=== PATIENT | female | born 1940 | race Caucasian/White ===

== ENCOUNTER 2020-10-03 12:19 | Inpatient (IN) | payer OTHER, MEDICARE ==
[~2020-10-03] VITALS: Ht 162.6 cm; Wt 69.9 kg
[2020-10-03 12:25] VITALS: BP 104/71
[2020-10-03 12:48] LABS: ABSOLUTE NEUTROPHILS 9.9 thou/uL (1.4-8.2); BASOPHILS 0.2 % (0.0-2.0); EOSINOPHILS 0.2 % (0.0-3.0); HEMATOCRIT 40.6 % (37.0-47.0); HEMOGLOBIN 12.8 gm/dL (12.0-15.0); LYMPHOCYTES 8.9 % (24.0-44.0); MCH 31.3 pg (26.0-34.0); MCHC 31.6 g/dL (28.0-37.0); MONOCYTES 4.6 % (1.0-8.0); POLYS 86.1 % (36.0-66.0); RDW 19.5 % (10.5-14.5); WBC 11.5 thou/uL (4.0-11.0)
[2020-10-03] MEDS ORDERED: VITAMIN D210 MCG PO (12:50)
[2020-10-03] MEDS ORDERED: LEVOTHYROXINE150 MCG PO (12:51)
[2020-10-03] MEDS ORDERED: RENAL-VITE TAB0.8 MG PO (12:51)
[2020-10-03] MEDS ORDERED: ALLOPURINOL 10100 M1 PO (12:52)
[2020-10-03] MEDS ORDERED: ISOSORBIDE MONO60 M1 PO (12:52)
[2020-10-03] MEDS ORDERED: TOPROL XL25 MG PO (12:52)
[2020-10-03] MEDS ORDERED: PROTONIX40 M4 PO (12:53)
[2020-10-03] MEDS ORDERED: SERTRALINE HCL100 MG PO (12:53)
[2020-10-03] MEDS ORDERED: ELIQUIS2.5 MG PO (12:53)
[2020-10-03] MEDS ORDERED: SSD CREAM 1% 5050 GM TOP (12:54)
[2020-10-03 12:59] LABS: ANION GAP 6 mmol/L (7-16); BUN 29 mg/dL (7-18); CALCIUM 8.9 mg/dL (8.5-10.1); CHLORIDE 100 mmol/L (98-107); CO2 31 mmol/L (21-32); CREATININE 3.6 mg/dL (0.6-1.0); GLUCOSE 121 mg/dL (74-106); POTASSIUM 4.2 mmol/L (3.5-5.1); SODIUM 137 mmol/L (136-145)
[2020-10-03] MEDS ORDERED: STIMULANT LAXA1 EACH PO (13:06)
[2020-10-03] MEDS ORDERED: NITROSTAT0.4 M1 SUBLING (13:08)
[2020-10-03 13:09] LABS: ALBUMIN 2.8 g/dL (3.4-5.0); LIPASE 54 U/L (73-393); SGOT 38 U/L (15-37); SGPT 15 U/L (30-65); TOTAL BILIRUBIN 1.7 mg/dL (0.2-1.0); TOTAL PROTEIN 7.6 g/dL (6.4-8.2); TROPONIN-I <0.06 ng/mL (<0.06)
[2020-10-03 13:50] LABS: URINE BLOOD 2+ (Negative); URINE CLARITY CLOUDY; URINE COLOR YELLOW; URINE GLUCOSE-RANDOM* TRACE (Negative); URINE KETONES 1+ (Negative); URINE NITRITE-REFLEX NEGATIVE (Negative); URINE PROTEIN (DIPSTICK) 2+ (Negative)
[2020-10-03 13:56] LABS: ICTOTEST (BILI CONFIRMATORY) Negative (Negative); URINE BILIRUBIN NEGATIVE (Negative); URINE LEUKOCYTES-REFLEX 1+ (Negative)
[2020-10-03 14:28] LABS: BACTERIA-REFLEX 1-9 Few /HPF (None Seen); CASTS None Seen /LPF (None Seen); CRYSTALS None Seen /LPF (None Seen); SQUAMOUS 0-3 Few /LPF (0-3); URINE RBC 0-2 Rare /HPF (0-2); URINE WBC-REFLEX 0-5 Rare /HPF (0-5)
[2020-10-03 14:29] LABS: TRANSITIONAL EPITHEL CELL 0-3 Few /LPF (None Seen)
[2020-10-03 19:02] VITALS: BP 96/57
[2020-10-03 19:19] LABS: ANISOCYTOSIS 2+; PLATELET COUNT 173 thou/uL (150-400); PLATELET ESTIMATE NORMAL; POIKILOCYTOSIS 1+
[2020-10-03 19:50] VITALS: BP 106/64
[2020-10-03 20:00] VITALS: BP 112/47
--- NOTE | 2020-10-03 23:09 | NUR ---
PT ARRIVED VIA CART FROM ER. ADMISSION COMPLETED AND CARE PLAN STARTED. SPOKE TO PT'S SON. HE SAID HIS MOTHER IS [place] AND WONT WEAR HER HEARING AIDES WHICH SHE LEFT AT HOME. PT HOME MEDS ARE IN ROOM AWAITING COVID R/O.
[2020-10-04 00:24] VITALS: BP 94/51
--- NOTE | 2020-10-04 01:46 | NUR ---
PT COVID PCR CAME BACK NEGATIVE. ALL APPROPRIATE PARTIES NOTIFIED.
[2020-10-04 04:54] VITALS: BP 99/57
--- NOTE | 2020-10-04 07:08 | EKG ---
[facility] [place] [address] ELECTROCARDIOGRAM REPORT Name: ZAKIA HERNÁNDEZ Room #: 363-P ADM IN M.R.#: [id number] Admission: 10/03/20 Attend Phys: Yessica Osuna MD Discharge: Date of : 42 Report #: [id number] THIS REPORT FOR: cc: Rosalee Longoria MD, Stany A. 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: PAOLA : 1940 Requested By: Bryson Purdy Order Number: [id number] MD: Mau Yang Measurements Intervals [place] Rate: 112 P: 54 [place]: 166 QRS: 202 QRSD: 108 T: 147 QT: 301 QTc: 411 Interpretive Statements Sinus tachycardia with irregular rate Probable right ventricular hypertrophy Abnormal T, consider ischemia, lateral leads No previous ECG available for comparison Electronically Signed On 10-04-2020 7:08:42 MENSWEAR SALESPERSON by aMu Yang [email or web address] <ELECTRONICALLY SIGNED> By: Mau Yang MD, FACC 10/04/20 0708 1246 1246 Mau Yang MD, [facility] /EPI
[2020-10-04 08:10] VITALS: BP 91/51
--- NOTE | 2020-10-04 10:05 | NUR ---
ASSESSMENT: CM REVIEWED CHART AND ATTEMPTED TO CALL PT BUT NO ANSWER. CM REACHED OUT TO PATIENTS SON DOM. PT WAS ADMITTED DUE TO MENTAL STATUS CHANGE AND CONCERN FOR POSSIBLE SEPSIS. PT JARRETT RECENTLY MOVED FROM [facility] AND IS LIVING WITH HER SON AND HIS IN A HOUSE. SON REPORTS TWO STEPS TO ENTER THE HOME BUT THEY HAVE A RAMP SHE CAN USE. PT HAS NO STEPS SHE HAS TO USE ONCE INSIDE. PT HAS A TRIPOD WALKER FOR AMBULATION. PT IS NORMALLY INDEPENDENT WITH ADLS. PT HAS A GRAB BAR IN THE SHOWER ALONG WITH A SHOWER BENCH. PT IS CURRENTLY ON 2L OXYGEN BUT DOES NOT HAVE OXYGEN AT HOME. PTS PCP IS DR. Saumya DORAN ([facility]). PT GETS DIALYSIS M-W- 0630 CHAIR TIME AT [facility] LOCATION. SON DRIVES HER TO AND FROM. CM CONTACTED [facility] TO NOTIFY THEM OF ADMISSION AND THEY REQUEST DISCHARGE PAPERWORK/FLOWSHEETS TO FAX:[phone]. PT HAS NO HX OF HH IN THE PAST NOR SNF. CM WILL CONTINUE TO FOLLOW TO ASSIST NEEDED.
[2020-10-04 11:13] VITALS: BP 98/65
--- NOTE | 2020-10-04 13:51 | NUR ---
PT ALERT AND ORIENTED TIMES THREE, WITH PERIODS OF CONFUSION. BP SOFT, OTHER VSS. CHOWDARY TO DD. PT DENIES PAIN. PT EATS SMALL PORIONS OF MEALS. PT TAKEN OUT OF ISOLATION COVID TEST NEG. PT CURRRENTLY GETTING DIALYSIS. SPOKE WITH PT SON AT 0750AM AND ALSO 1200PM TO UPDATE ON PT CARE. WILL CONTINUE TO MONITOR.
[2020-10-04 17:50] VITALS: BP 112/54
[2020-10-04 19:29] VITALS: BP 107/40
--- NOTE | 2020-10-04 20:01 | NUR ---
PT A&OX4, VSS, DENIES PAIN. PATIENT TRANSFER FROM APPROX. 1700. PATIENT DENIES N/V/D. NO COUGH NOTED AT THIS TIME. PATIENT HAD DIALYSIS TODAY, 1400ML OFF PER REPORT. DIALYSIS PORT BANDAGED LEFT UPPER ARM. PATIENT ON 2L O2. NO SIGNS OF DISTRESS NOTED. WILL CONTINUE TO MONITOR.
[2020-10-05 04:45] VITALS: BP 98/46
--- NOTE | 2020-10-05 07:50 | NUR ---
ASSUMED PATIENT CARE AT 1845. VITAL SIGNS STABLE WITH PATIENT HAVING NO COMPLAINTS OF PAIN OR NAUSEA. PATIENTS ORIENTATION HAS IMPROVED OVER SHIFT WITH PATIENT APPEARING MORE LUCID AND INVOLVED IN CARE. BREATHING STABLE ON LOW LEVEL OF OXYGEN EVIDENCED BY ASSESSMENTS AND SPOT OXYGENATION CHECKS. CONTINUE PLAN OF CARE.
[2020-10-05 08:07] LABS: HEP B SURFACE Ab(ANTI-HBS Reactive (()); HEPATITIS B SURFACE AG Negative (Negative)
[2020-10-05 16:00] VITALS: BP 97/35
--- NOTE | 2020-10-05 16:49 | NUR ---
Case discussed with the care team. Pt getting dialysis today and very weak. PT/OT evals are in progress. Pt lives at home with family and has dme in place other than O2. Her son takes her to dialysis. Will follow along for possible HH or SNF referral pending her progress. Covid test neg. Weaning O2. Will follow.
[2020-10-05 19:56] VITALS: BP 104/38
--- NOTE | 2020-10-05 20:23 | NUR ---
ASSUMED CARE AT CHANGE OF SHIFT. ALERT X4,RECENT MOVE FROM [place] TO LIVE WITH SON. PAIN MANAGED WITH PRN MEDS. AX1 TO COMMODE. VOIDS PER COMMODE BM TODAY CHOWDARY INPLACE. DIALYSIS TODAY WITH 2L REMOVED. NOTED BLISTERS TO LEFT ARM.CALLS FOR ASSISTANCE. FALL PRECAUTIONS IN PLACE
[2020-10-06 06:18] VITALS: BP 133/66
--- NOTE | 2020-10-06 07:08 | NUR ---
PATIENTS CARES WERE ASSUMED AT SHIFT CHANGE. PATIENT WAS ASSESSED AND MEDS ERE PASSED. PATIENT DID SLEEP WELL THIS SHIFT. NURSING TOOK OFF HER SCD'S DUE TO HER RIGHT LEG APPERS TO LOOK LIKE CELLULITIS WILL CONTINUE WITH CURRENT PLAN OF CARE.
--- NOTE | 2020-10-06 08:35 | HC ---
[facility] [place] [address] CONSULTATION Name: ZAKIA HERNÁNDEZ Room #: 216-P ADM IN M.R.#: [id number] Admission: 10/03/20 Attend Phys: Yessica Osuna MD Discharge: Date of : 41 Report #: [id number] THIS REPORT FOR: cc: Rosalee Longoria MD, Stany A. MD Barry, Joseph W. MD ~ DATE OF SERVICE: 10/05/2020 INFECTIOUS DISEASE CONSULTATION ATTENDING PHYSICIAN: Dr. Osuna. REASON FOR EVALUATION: Sepsis. HISTORY OF PRESENT ILLNESS: Chart reviewed, the patient examined. This is a 80-year-old with a history of diabetes mellitus, has been complicated by end-stage renal disease. She has been on dialysis for last 10 years, presented to the Emergency Room with complaints of abdominal pain on 10/03/2020, associated with nausea and emesis as well. It is not clear that she had fever. Evaluation was undertaken including imaging, which was otherwise unrevealing as was laboratory. There was no evidence of pyogenic infection, coronavirus testing was negative as well. She is empirically treated with vancomycin as well as ceftriaxone, the latter was not continued. At this point, she is seen post-dialysis. She denies significant amount of pain at this point. She complains of not being able to eat due to her lack of having her dentures. She is maintained on 2-3 liters of nasal cannula supplemental oxygen, although she denies significant breathing issues. ALLERGIES: LISTED TO IODINE. CURRENT MEDICATIONS: Include sertraline, midodrine, apixaban, levothyroxine, pantoprazole, vancomycin, given dialysis twice weekly. PAST MEDICAL HISTORY: As described above, diabetes mellitus complicated by vasculopathy, has end-stage renal disease on dialysis, cardiomyopathy, history of congestive heart failure, atrial fibrillation, reflux, hypothyroidism, gout, hypertension, depression, has a left forearm graft fistula. SOCIAL HISTORY: No ethanol. FAMILY HISTORY: Noncontributory. REVIEW OF SYSTEMS: Otherwise unremarkable with the exception of the above. [facility] [address] [place] [address] CONSULTATION Name: ZAKIA HERNÁNDEZ Room #: 216-P [facility] IN M.R.#: [id number] Admission: 10/03/20 Attend Phys: Yessica Osuna MD Discharge: Date of : 41 Report #: [id number] PHYSICAL EXAMINATION: GENERAL: She appears chronically ill, undernourished, pleasant, cooperative, generally appears lucid. VITAL SIGNS: Temperature 97.7, pulse 114, respirations 18, blood pressure 98/46. SKIN: Warm, dry, no rashes. HEENT: Normocephalic. Extraocular muscles intact. NECK: Supple. LUNGS: Diminished, otherwise, few scattered crackles at the bases. HEART: Tachycardic, regular with some ectopy. Soft systolic murmur. ABDOMEN: Soft, nontender, nondistended. Right forearm graft without significant superficial inflammation noted. GENITORECTAL: Deferred. LABORATORY DATA: Screening hepatitis showed positive hepatitis B surface antibody consistent with immunization. Blood cultures sterile thus far from admission. Urine culture negative thus far. Coronavirus testing both for antigen and PCR were both negative. CBC from the first white count of 11.5, H and H 12.8 and 40.6, platelets of 173. CT abdomen and pelvis showed diffuse soft tissue edema suggesting anasarca. Findings raise a question of cirrhosis, bilateral small pleural effusions with bibasilar atelectasis. Ultrasound followup showed previous evidence of cholecystectomy, prominence of the bile duct. No findings of hydronephrosis or obstruction. Chest x-ray, cardiomegaly with pulmonary vascular congestion. Lactic acid 1.8. Electrolytes: Sodium 137, potassium 4.2, chloride 100, bicarbonate is 31, anion gap of 6, BUN and creatinine 29 and 3.6, glucose of 121. AST of 38, ALT of 15, lipase of 54. Total bilirubin 1.7. Albumin of 2.8, total protein of 7.6. Estimated GFR of 12. ASSESSMENT: Sepsis of uncertain source. She apparently has responded to some degree. Her presenting signs and symptoms have been ameliorated at this point. I think it is reasonable to continue empiric therapy. We will await additional 1-2 days to make sure the blood cultures remain sterile and we will see a focus of infection at this point. We would not pursue a prolonged course of antibiotics unless it becomes evident that there is an obvious source. It is difficult to know for certain her baseline, but she appears to be approaching. Continue to wean off support as allowed. Encourage p.o. intake. We will add incentive spirometry. <ELECTRONICALLY SIGNED> By: Mane Franks MD 10/06/20 0835 1350 9 Mane Franks MD /nt
[2020-10-06 08:50] VITALS: BP 135/63
[2020-10-06 11:50] VITALS: BP 133/40
--- NOTE | 2020-10-06 16:18 | NUR ---
ASSESSMENT CHARTED. PT ALERT AND ORIENTED. VSS. DENIED HAVING PAIN OR DISCOMFORT. HAVING DIALYSIS AT THIS TIME. NO CONCERNS AT THIS TIME.
--- NOTE | 2020-10-06 17:21 | NUR ---
Dialyzing today. No weekend dc anticipated. Therapy working with pt. ID consult due to multiple areas of cellulitis. Will continue to follow for possible [place] referral [place].
[2020-10-06 19:43] VITALS: BP 127/79
[2020-10-06 20:00] VITALS: BP 132/35
[2020-10-06 23:54] VITALS: BP 147/78
[2020-10-07] VITALS (8 sets, daily range): BP systolic 127–156; BP diastolic 54–73
--- NOTE | 2020-10-07 04:00 | NUR ---
CARE ASSUMED AT 1900. PT WAS FINISHING DIALYSIS. SCHEDULED ABX POST DIALYSIS GIVEN. A0 X 4. VITALS STABLE. MIDOTRINE NOT GIVEN LAST NIGHT SINCE PT WAS ON DIALYSIS PAST 1899. VERIFIED BY PHARMACY NOT TO ADMINISTER MIDOTRINE. DENIES ANY PAIN. WILL CONTINUE TO FOLLOW POC.
[2020-10-07 11:27] LABS: HEMATOCRIT 35.1 % (37.0-47.0); HEMOGLOBIN 11.2 gm/dL (12.0-15.0); MCH 31.4 pg (26.0-34.0); MCHC 32.1 g/dL (28.0-37.0); MCV 97.9 fL (80.0-100.0); RBC 3.58 mil/uL (4.20-5.00); RDW 18.3 % (10.5-14.5); WBC 9.4 thou/uL (4.0-11.0)
--- NOTE | 2020-10-07 11:37 | HC ---
[facility] [place] [address] CONSULTATION Name: ZAKIA HERNÁNDEZ Room #: 216-P ADM IN M.R.#: [id number] Admission: 10/03/20 Attend Phys: Yessica Osuna MD Discharge: Date of : 41 Report #: [id number] THIS REPORT FOR: cc: Rosalee Longoria MD, Stany A. MD Al-Mubaslat, Ahmad MD ~ DATE OF SERVICE: 10/06/2020 ENDOCRINE CONSULTATION NOTE CONSULTING PHYSICIAN: Dr. Osuna. REASON FOR CONSULTATION: Hypothyroidism. HISTORY OF PRESENT ILLNESS: This is a 80-year-old female patient whose medical background is significant for multiple medical issues including congestive heart failure, atrial fibrillation, and hypothyroidism. The patient is also known to have CAD and is status post triple CABG in 2008. When the patient was questioned about her history of hypothyroidism, she confirmed that this has been very longstanding and is probably over many years since detection. She also notes that her dose was doubled when she had moved from [place] to [place] a little less than 2 months ago. Given her uncertainty about the specifics of these changes, both she and I called her son Aguila, who confirmed that her dose was doubled from 75 to 150 mcg daily, less than 2 months ago. He was not sure what her baseline TSH was. The patient and her son both confirmed that there is a high chance that she might have missed her levothyroxine intake for a significant length of time over the past several months. The patient has been tired and describes a slight weight gain, cold intolerance and fatigue. During her hospital stay, she had been dealing with sinus tachycardia. REVIEW OF SYSTEMS: CONSTITUTIONAL: Fatigue, tiredness, slight weight gain. No fever or chills. HEENT: Negative for sore throat, sinus pain or ear drainage. PULMONARY: Noted for intermittent shortness of breath, dyspnea on exertion, intermittent cough, but no hemoptysis. CARDIAC: Background issues for atrial fibrillation, CAD, dyspnea on exertion, lower extremity edema, but not syncope or presyncope. GASTROINTESTINAL: Noted for intermittent difficulties with abdominal pain, nausea, but no vomiting. NEUROLOGY: Lightheadedness, dizziness, but not loss of consciousness or seizure [facility] [address] [place] [address] CONSULTATION Name: ZAKIA HERNÁNDEZ Room #: 216-P [facility] IN M.R.#: [id number] Admission: 10/03/20 Attend Phys: Yessica Osuna MD Discharge: Date of : 41 Report #: [id number] activity. Otherwise, review of systems noncontributory other than those mentioned in HPI. PAST MEDICAL HISTORY: 1. Congestive heart failure. 2. Atrial fibrillation. 3. Coronary artery disease, status post CABG in 2008. 4. Hypothyroidism. 5. Chronic kidney disease. 6. Gastroesophageal reflux disease. 7. Gout. 8. Hypertension. 9. Depression. 10. Vitamin D deficiency. OUTPATIENT MEDICATIONS: Include levothyroxine 150 mcg daily, vitamin D 50,000 units weekly, Patti-Vanessa tablets daily, metoprolol XL 25 mg b.i.d., isosorbide mononitrate 60 mg daily, allopurinol 100 mg daily, Eliquis 2.5 mg b.i.d., sertraline daily 100 mg, pantoprazole 40 mg daily. ALLERGIES: IODINATED CONTRAST. FAMILY HISTORY: Noncontributory. SOCIAL HISTORY: The patient denies use of tobacco, alcohol or illicit drugs. PHYSICAL EXAMINATION: GENERAL: Pleasant elderly female patient who is not in apparent pain or distress. VITAL SIGNS: Blood pressure is 133/66 mmHg, heart rate is 118 beats per minute, respirations 16 per minute, temperature 36.7 degrees Celsius. CONSTITUTIONAL: The patient is sitting upright in bed. She appears comfortable, not in pain or distress. HEENT: Anicteric sclerae. Intact extraocular motions. NECK: Supple, without carotid bruits, no thyromegaly. CHEST: Noted for moderate air entry bilaterally with scattered rales. No crackles or wheezes. HEART: Tachycardic with systolic murmur. ABDOMEN: Soft, lax. No guarding. Active bowel sounds. EXTREMITIES: Lower extremity exam, trace ankle edema. No skin breaks or ulcerations. NEUROLOGIC: Awake, alert and oriented to time, place and person. The remainder of her examination is nonfocal. PSYCHIATRIC: Pleasant, interactive. Normal mood and affect. [address] [address] CONSULTATION Name: ZAKIA HERNÁNDEZ Room #: 216-P [facility] IN M.R.#: [id number] Admission: 10/03/20 Attend Phys: Yessica Osuna MD Discharge: Date of : 41 Report #: [id number] LABORATORY DATA: TSH 19.031. Sodium 137, potassium 4.2, chloride 100, CO2 of 31, anion gap 6, BUN 29, creatinine 3.6, glucose 121. AST 38, lipase 54, total bilirubin 1.7, calcium 8.9, alkaline phosphatase 157, ALT 15, total protein 7.6, albumin 2.8, EGFR 12, ammonia 60. Lactic acid 1.8. Troponin negative. White blood count 11.5, hemoglobin 12.8, hematocrit 40.6, platelets 173. ASSESSMENT AND PLAN: Hypothyroidism. As noted above, this has been a longstanding issue for the patient. Importantly, she appears to have undergone a significant dose change recently. That said, I would very much like to allow this change some time to figure the full effect of this new dose, especially that we do not know what her baseline TSH was. Furthermore, her background cardiac issues and existing difficulties with tachycardia also warrant that we exert more caution when considering advancing her levothyroxine intake. Another critical element to take note of would be the stated and likely noncompliance with her levothyroxine intake. If she indeed had significant gaps and levothyroxine therapeutic intake, then that in itself can and could have been intermittently related to her very uncontrolled TSH. The patient and her son were both counseled about the importance of achieving and maintaining adequate thyroid control to avoid such aberrations and difficulties. In short, I will order a free T4 and free T3 levels. If these fall within normal limits, then I am not at all motivated to advance her dose further and would like to allow the patient more time with the new dose and with improved intake consistency prior to considering further advancement. The patient verbalized her agreement with this plan. I appreciate this consultation by Dr. Osuna. <ELECTRONICALLY SIGNED> By: Daxa Vera MD 10/07/20 1137 1315 0550 Daxa Vera MD /nt
[2020-10-07 11:47] LABS: ALBUMIN 2.2 g/dL (3.4-5.0); CALCIUM 8.7 mg/dL (8.5-10.1); CREATININE 2.3 mg/dL (0.6-1.0); MAGNESIUM 1.9 mg/dL (1.8-2.4); POTASSIUM 3.8 mmol/L (3.5-5.1); TOTAL PROTEIN 6.9 g/dL (6.4-8.2)
[2020-10-07 13:15] LABS: ANISOCYTOSIS 2+; PLATELET COUNT 130 thou/uL (150-400)
--- NOTE | 2020-10-07 19:48 | NUR ---
PT CARE ASSUMED AT 0700. ASSESSMENTS CHARTED. MEDICATION CHARTED. JUANPABLO IV. LFA FISTULA. BSC. O2 2LPM. DIALYSIS MWF.
[2020-10-08] VITALS (8 sets, daily range): BP systolic 130–152; BP diastolic 59–86
--- NOTE | 2020-10-08 10:01 | EKG ---
[facility] [place] [address] ELECTROCARDIOGRAM REPORT Name: ZAKIA HERNÁNDEZ Room #: 216-P ADM IN M.R.#: [id number] Admission: 10/03/20 Attend Phys: Yessica Osuna MD Discharge: Date of : 41 Report #: [id number] THIS REPORT FOR: cc: Rosalee Longoria MD, Stany A. MD Lundgren,Ariel Mancini MD [facility] ~ THIS REPORT FOR: //name// [facility] Test Date: 2020-10-08 Test Time: 09:53:33 Pat Name: ZAKIA HERNÁNDEZ Department: Room: 216 P Gender: F Pipe Connector: RENEE : 1940 Requested By: Amanda Chase Order Number: [id number] MD: Ariel Salmeron Measurements Intervals [place] Rate: 121 P: 0 [place]: QRS: 203 QRSD: 117 T: 152 QT: 330 QTc: 469 Interpretive Statements Sinus tachycardia Nonspecific intraventricular conduction delay Nonspecific ST and T wave abnormality Compared to ECG 10/03/2020 12:46:23 No significant change was found Electronically Signed On 10-08-2020 10:01:24 CUSTOMER SERVICES COORDINATOR by Ariel Salmeron [email or web address] <ELECTRONICALLY SIGNED> By: Ariel Salmeron MD, FACC 10/08/20 1001 0953 0953 Ariel Salmeron MD, FACC /EPI
--- NOTE | 2020-10-08 18:49 | NUR ---
PT CARE ASSUMED AT 0700. ASSESSMENTS CHARTED. MEDICATION CHARTED. JUANPABLO IV. LFA FISTULA. DIALYSIS MWF. BSC. ASSIST X 1. A FIB TO SINUS TACHYCARDIA. WALKS SLOWLY BUT STEADILY WITH WALKER
[2020-10-09 03:59] VITALS: BP 132/80
--- NOTE | 2020-10-09 04:20 | NUR ---
Assumed pt care at 1900. Pt is alert and oriented with no sign of distress noted in pt. Pt is transferred from chair to bed. No sign of distress noted in pt. Denies pain. Fall precaution in place. Assessment documented and completed. No acute events overnight. Dialysis in the AM. Continue to monitor.
[2020-10-09 08:09] VITALS: BP 135/81
--- NOTE | 2020-10-09 09:05 | EKG ---
[facility] [place] [address] ELECTROCARDIOGRAM REPORT Name: ZAKIA HERNÁNDEZ Room #: 216-P ADM IN M.R.#: [id number] Admission: 10/03/20 Attend Phys: Yessica Osuna MD Discharge: Date of : 41 Report #: [id number] THIS REPORT FOR: cc: Rosalee Longoria MD, Stany A. MD Lundgren,Ariel Mancini MD [facility] ~ THIS REPORT FOR: //name// [facility] Test Date: 2020-10-09 Test Time: 09:01:50 Pat Name: ZAKIA HERNÁNEDZ Department: Room: 216 P Gender: F Editorial Project Manager: BALJIT : 1940 Requested By: Stephanie De Oliveira Order Number: [id number] MD: Ariel Salmeron Measurements Intervals [place] Rate: 116 P: [place]: QRS: -82 QRSD: 116 T: 158 QT: 331 QTc: 460 Interpretive Statements Atrial fibrillation Incomplete RBBB and LAFB Nonspecific ST and T wave abnormality Compared to ECG 10/08/2020 09:53:33 Nonspecific change in the ST and T wave segments Atrial fibrillation is now present Electronically Signed On 10-09-2020 9:05:39 SURGICAL SERVICES TECH by Ariel Salmeron [email or web address] <ELECTRONICALLY SIGNED> By: Ariel Salmeron MD, [facility] 10/09/20904 0 0 Ariel Salmeron MD, [facility] /EPI
[2020-10-09 11:22] VITALS: BP 113/61
--- NOTE | 2020-10-09 14:39 | 2DMMODE ---
[facility] [place] [address] 2 D/M-MODE ECHOCARDIOGRAM Name: ZAKIA HERNÁNDEZ Room #: 216-P ADM IN M.R.#: [id number] Admission: 10/03/20 Attend Phys: Yessica Osuna MD Discharge: Date of : 41 Report #: [id number] THIS REPORT FOR: cc: Rosalee Longoria MD, Stany A. MD Lammoglia, Francisco J. MD ~ APPROVED REPORT Study performed: 10/09/2020 13:43:44 EXAM: Comprehensive 2D, Doppler, and color-flow Echocardiogram Patient Location: Bedside Room #: 216 Status: routine BSA: 1.75 HR: 106 bpm BP: 113/61 mmHg Rhythm: Atrial Fibrillation Other Information Study Quality: Good Indications Congestive Heart Failure Diabetes Atrial Fibrillation Tachycardia Hypertension/HDD 2D Dimensions RVDd: 43.46 mm IVSd: 10.53 (7-11mm) LVOT Diam: 21.32 (18-24mm) LVDd: 41.81 mm PWd: 10.96 (7-11mm) Ascending Ao: 28.38 (22-36mm) LVDs: 31.20 (25-40mm) Aortic Root: 29.14 mm IVC: 25.00 mm Volumes Left Atrial Volume (Systole) Single Plane 4CH: 73.02 mL Single Plane 2CH: 57.91 mL LA ESV Index: 45.00 mL/m2 Aortic Valve AoV Peak Carl.: 1.73 m/s [facility] [address] [place] [address] 2 D/M-MODE ECHOCARDIOGRAM Name: EDGARZAKIA Room #: 216-P [facility] IN .R.#: [id number] Admission: 10/03/20 Attend Phys: Ozzy Reyes Discharge: Date of : 41 Report #: [id number] Peak Gr.: 11.97 mmHg LVOT Max P.93 mmHg LVOT Max V: 0.69 m/s MELANIE Vmax: 1.43 cm2 Pulmonary Valve PV Peak Carl.: 0.73 m/s PV Peak Gr.: 2.12 mmHg Tricuspid Valve TR Peak Carl.: 3.44 m/s TR Peak Gr.: 47.35 mmHg PA Pressure: 57.00 mmHg Left Ventricle The left ventricle is normal size. Borderline concentric left ventricular hypertrophy. Left ventricular systolic function is borderline. LVEF is 50%. This study is not technically sufficient to allow evaluation of the LV diastolic function due to atrial fibrillation. Right Ventricle Right ventricle is dilated. Right ventricle is mildly hypokinetic. Atria Left atrium is dilated. Right atrium is dilated. Aortic Valve The aortic valve is normal in structure. Aortic valve is calcified. No aortic regurgitation is present. There is no aortic valvular stenosis. Mitral Valve The mitral valve is normal in structure. Mild mitral regurgitation. No evidence of mitral valve stenosis. Tricuspid Valve The tricuspid valve is normal in structure. There is moderate tricuspid regurgitation. Estimated PAP 57 mmHg. There is moderate pulmonary hypertension. Pulmonic Valve The pulmonary valve is normal in structure. Trace pulmonic regurgitation. Great Vessels The aortic root is normal in size. IVC is dilated and collapses [facility] [address] [place] [address] 2 D/M-MODE ECHOCARDIOGRAM Name: ZAKIA HERNÁNDEZ Room #: 216-[facility] IN ..#: [id number] Admission: 10/03/20 Attend Phys: Ozzy Reyes Discharge: Date of : 42 Report #: [id number] <50% with inspiration. Pericardium Trace pericardial effusion. Large pleural effusion. <Conclusion> The left ventricle is normal size. LVEF is 50%. Right ventricle is dilated. Right ventricle is mildly hypokinetic. Left atrium is dilated. Right atrium is dilated. The aortic valve is normal in structure. Aortic valve is calcified. The mitral valve is normal in structure. Mild mitral regurgitation. The tricuspid valve is normal in structure. There is moderate tricuspid regurgitation. Estimated PAP 57 mmHg. There is moderate pulmonary hypertension. The pulmonary valve is normal in structure. Trace pulmonic regurgitation. Trace pericardial effusion. Large pleural effusion. <ELECTRONICALLY SIGNED> By: Aguila Chester MD 10/09/20 1439 1439 1439 Aguila Chester MD /INF
--- NOTE | 2020-10-09 16:51 | NUR ---
ASSUMED CARE AT CHANGE OF SHIFT ALERTX3, RECENT MOVE TO LIVE WITH SON. DENIES PAIN, DENIES SOB, DIALYISIS COMPLETED TODAY. SCHEDULED MEDS PER ORDERED GIVEN. UP WITH WALKER AX1. IFECTIOUS DISEASE MANAGING ANTIBIOTIC. WILL DC ONCE MEDICALLY STABLE HOME WITH HH.
[2020-10-09 19:40] VITALS: BP 116/53
[2020-10-10 04:58] LABS: HEMATOCRIT 40.4 % (37.0-47.0); MCH 31.4 pg (26.0-34.0); MCHC 32.2 g/dL (28.0-37.0); MCV 97.5 fL (80.0-100.0); PLATELET COUNT 167 thou/uL (150-400); RBC 4.15 mil/uL (4.20-5.00); RDW 18.3 % (10.5-14.5); WBC 7.2 thou/uL (4.0-11.0)
[2020-10-10 05:35] VITALS: BP 99/50
[2020-10-10 05:49] LABS: ALBUMIN 1.9 g/dL (3.4-5.0); CALCIUM 9.1 mg/dL (8.5-10.1); MAGNESIUM 1.9 mg/dL (1.8-2.4); PHOSPHORUS 2.7 mg/dL (2.5-4.9); TOTAL BILIRUBIN 1.8 mg/dL (0.2-1.0); TOTAL PROTEIN 6.7 g/dL (6.4-8.2)
[2020-10-10 08:00] VITALS: BP 120/50
[2020-10-10 08:17] LABS: ABSOLUTE NEUTROPHILS 5.4 thou/uL (1.4-8.2); ANISOCYTOSIS 1+; MACROCYTES 1+; MICROCYTES 1+; PLATELET ESTIMATE NORMAL; POLYCHROMASIA SLIGHT
[2020-10-10 08:18] LABS: LARGE PLATELETS OCCASIONAL; POIKILOCYTOSIS SLIGHT; TARGET CELLS OCCASIONAL
[2020-10-10 11:30] VITALS: BP 1245/55
[2020-10-10 15:45] VITALS: BP 114/46
--- NOTE | 2020-10-10 16:24 | NUR ---
Patient evaled by 5N and too high level. Sp with patient and reviewed HH vs skilled care. [place] care. Sp with son who reports he sp with patient and he reports skilled better and patient agreeable. he believes if home she will not be motivated to continue to work with therapy. Referral to [facility] for review.
--- NOTE | 2020-10-10 16:35 | NUR ---
ASSUMED CARE OF PT AT SHIFT CHANGE. ASSESSMENTS CHARTED. MEDS GIVEN PER JAN. PT A&OX4, NO C/O PAIN, N/V OR DISTRESS. POSSIBLE DC TO 5N TODAY. WILL CONTINUE TO MONITOR AND FOLLOW POC.
[2020-10-10 21:45] VITALS: BP 127/54
[2020-10-11] VITALS: BP 125/56
[2020-10-11 04:45] VITALS: BP 133/54
[2020-10-11 09:09] VITALS: BP 113/53
--- NOTE | 2020-10-11 09:41 | NUR ---
REFERRAL FAXED TO [facility] SPOKE WITH RUIZ IN ADM SHE WILL REVIEW SHE DOESN'T KNOW IS SHE WILL HAVE BED AVAILABLE TODAY SHE WILL NOTIFY JOCELYN (PIPE).
[2020-10-11] MEDS ORDERED: AUGMENTIN 500-1 EACH PO (12:17)
[2020-10-11] MEDS ORDERED: MIDODRINE HCL 55 M1 PO (12:17)
[2020-10-11 12:48] VITALS: BP 107/64
--- NOTE | 2020-10-11 13:18 | NUR ---
Patient evaled for 5N and report too high level for 5N. Requested they reeval since patient has not been since from OT until the 4th. Sp with son and referral to [facility] since no bed avail at [facility].
--- NOTE | 2020-10-11 15:32 | NUR ---
FAXED REFERRAL TO TO [facility] SPOKE WITH MAURILIO IN ADM SHE RECEIVED REFERRAL AND WILL REVIEW.
[2020-10-11 16:05] VITALS: BP 106/44
[2020-10-11 17:50] VITALS: BP 106/44
--- NOTE | 2020-10-11 18:00 | NUR ---
Patient accepted to [facility]N after reeval. Updated son plan transfer today.
--- NOTE | 2020-10-11 19:14 | NUR ---
ASSUMED CARE AT SHIFT CHANGE, ASSESSMENT DOCUMNETED. VSS AND AFEBRILE. REPORT GIVEN TO YULIANA SMALLS AND PATIENT TRANFERED TO [facility].
--- NOTE | 2020-10-16 07:41 | HC ---
[facility] [place] [address] CONSULTATION Name: ZAKIA HERNÁNDEZ Room #: 216-P [facility] IN M.R.#: [id number] Admission: 10/03/20 Attend Phys: Yessica Osuna MD Discharge: 10/11/20 Date of : 42 Report #: [id number] THIS REPORT FOR: cc: Rosalee Longoria MD, Stany A. MD Al-Sudhir,Caitlyn Lin MD ~ DATE OF SERVICE: 10/04/2020 REASON FOR CONSULTATION: End-stage renal disease. REASON FOR PRESENTATION: Very difficult to obtain history given the fact that the patient is hard of hearing and not able to answer my questions. She presented to the Emergency Room with abdominal pain HISTORY OF PRESENT ILLNESS: 80 female patient who presented to the Emergency Room reported that she has been having nausea, vomiting and abdominal pain by her family members. She also reported to some shortness of breath and cough. She has a history of diabetes mellitus and hypertension. She is also known to have atrial fibrillation. She is a Friday, Friday, Friday dialysis patient utilizing a left AV fistula. The patient was admitted to further evaluate her ongoing issues and I was consulted to manage her end-stage renal disease. PAST MEDICAL HISTORY: 1. Atrial fibrillation. 2. Coronary artery disease. 3. Hypertension. 4. Hypothyroidism. 5. End-stage renal disease, maintained on hemodialysis. MEDICATIONS: 1. Eliquis. 2. Isosorbide mononitrate. 3. Nitroglycerin. 4. Metoprolol. 5. Allopurinol. 6. Pantoprazole. 7. Levothyroxine. ALLERGIES: LISTED IODINATED CONTRAST. FAMILY HISTORY: Not able to obtain given the patient's current mental status. REVIEW OF SYSTEMS: Not able to obtain given the patient's current mental [facility] [address] [place] [address] CONSULTATION Name: ZAIKA HERNÁNDEZ Room #: 216-P DIS IN [facility].#: [id number] Admission: 10/03/20 Attend Phys: Yessica Osuna MD Discharge: 10/11/20 Date of : 42 Report #: [id number] status. PHYSICAL EXAMINATION: GENERAL: She is weak and disoriented. VITAL SIGNS: Blood pressure is 99/57, respiratory rate is 18, temperature is 36.8. HEAD AND NECK: No jugular venous distention. CHEST: No crackles. CARDIOVASCULAR: No rub. ABDOMEN: Soft. EXTREMITIES: Lower extremities, +1 edema. LABORATORY DATA: White blood cell count 11.5. Sodium 137, BUN is 29, creatinine is 3.6. Abdominal ultrasound revealed atrophic kidneys with some sort of ascites on her abdominal and pelvis CT. ASSESSMENT, IMPRESSION AND PLAN: 1. End-stage renal disease. 2. History of atrial fibrillation. 3. Weakness, nausea, vomiting of unclear etiology. 4. Arrange for the patient to have her usual hemodialysis today. The patient was ruled out for COVID-19. 5. Aggressive ultrafiltration as possible with hemodialysis. 6. Hold blood pressure medications. 7. Septic workup was initiated. 8. We will continue to follow. <ELECTRONICALLY SIGNED> By: Caitlyn Paez MD 10/16/20740 0 0 Caitlyn Paez MD /nt
== END 2020-10-11 19:15 | DRG 871 ==
LOC: ER 12:19 → 3W 18:15 → EROBS 18:15 → 2N 18:15 → 3W 19:53 → 2N 10-04 17:37
PROVIDERS: Emergency Medicine; Hospitalist; Internal Medicine; ADMIT Hospitalist; ATTEND Hospitalist
PROC: 5A1D70Z Performance of Urinary Filtration, Intermittent, Less than 6 Hours Per Day (ICD-10-PCS; principal; 2020-10-06)
PROC: 5A1D70Z Performance of Urinary Filtration, Intermittent, Less than 6 Hours Per Day (ICD-10-PCS; 2020-10-09)
DX: A41.50 Gram-negative sepsis, unspecified (principal); N18.6 End stage renal disease; G93.41 Metabolic encephalopathy; J96.01 Acute respiratory failure with hypoxia; L03.313 Cellulitis of chest wall; I42.9 Cardiomyopathy, unspecified; N39.0 Urinary tract infection, site not specified; R18.8 Other ascites; J98.11 Atelectasis; I13.2 Hypertensive heart and chronic kidney disease with heart failure and with stage 5 chronic kidney disease, or end stage renal disease; I48.0 Paroxysmal atrial fibrillation; I25.10 Atherosclerotic heart disease of native coronary artery without angina pectoris; E03.9 Hypothyroidism, unspecified; E11.22 Type 2 diabetes mellitus with diabetic chronic kidney disease; F32.9 Major depressive disorder, single episode, unspecified; M10.9 Gout, unspecified; I95.9 Hypotension, unspecified; D63.8 Anemia in other chronic diseases classified elsewhere; I50.9 Heart failure, unspecified; E55.9 Vitamin D deficiency, unspecified; N61.0 Mastitis without abscess; K74.60 Unspecified cirrhosis of liver; Z20.828 Contact with and (suspected) exposure to other viral communicable diseases; E87.70 Fluid overload, unspecified; R63.4 Abnormal weight loss; Z68.26 Body mass index [BMI] 26.0-26.9, adult; Z79.01 Long term (current) use of anticoagulants; Z91.041 Radiographic dye allergy status; Z95.1 Presence of aortocoronary bypass graft; Z79.899 Other long term (current) drug therapy; Z28.21 Immunization not carried out because of patient refusal
CPT/HCPCS: 10081; 10879; 32100

== ENCOUNTER 2020-10-11 16:31 | Inpatient (IN) | payer OTHER, MEDICARE ==
[~2020-10-11] VITALS: Ht 162.6 cm; Wt 67.6 kg
[~2020-10-11 16:31] MED LIST: ALLOPURINOL 10100 M1 PO; AUGMENTIN 500-1 EACH PO; ELIQUIS2.5 MG PO; ISOSORBIDE MONO60 M1 PO; LEVOTHYROXINE150 MCG PO; MIDODRINE HCL 55 M1 PO; NITROSTAT0.4 M1 SUBLING; PROTONIX40 M4 PO; RENAL-VITE TAB0.8 MG PO; SERTRALINE HCL100 MG PO; SSD CREAM 1% 5050 GM TOP; STIMULANT LAXA1 EACH PO; TOPROL XL25 MG PO; VITAMIN D210 MCG PO
[2020-10-11 19:46] VITALS: BP 111/55
--- NOTE | 2020-10-12 01:35 | NUR ---
pt arrived to unit via w/c from 2N. pt alert and oriented x4, pleasant and cooperative. pt assisted with standing wt. pt denied c/o pain. pt weak however able to transfer to bed from chair with moderate assist x2. pt took hs meds with applesauce and water tolerating well. pt appears to be sleeping soundly with hourly rounding. bed alarm on and call light in reach. will continue to monitor.
[2020-10-12 06:01] LABS: HEMATOCRIT 36.3 % (37.0-47.0); HEMOGLOBIN 11.7 gm/dL (12.0-15.0); MCH 31.6 pg (26.0-34.0); MCHC 32.3 g/dL (28.0-37.0); RBC 3.7 mil/uL (4.20-5.00); RDW 18.5 % (10.5-14.5)
[2020-10-12 06:22] LABS: ALBUMIN 2.1 g/dL (3.4-5.0); CALCIUM 8.7 mg/dL (8.5-10.1); PHOSPHORUS 2.9 mg/dL (2.5-4.9); POTASSIUM 3.7 mmol/L (3.5-5.1)
[2020-10-12 08:00] VITALS: BP 142/95
[2020-10-12 10:49] LABS: FOLIC ACID 41.2 ng/mL (8.6-58.9)
--- NOTE | 2020-10-12 12:48 | NUR ---
chart review. unable to visit with her rt she working with therapy. cm spoke with pt bethany petty via phone call. education on team meeting, dcp and transition of care, ie home health. " mom lives with us. i am working from home right now rt pandemic. drive mom to dialysis kami llamas M-W-. she has tripod walker, 2 steps to enter home or she can use the ramp. has shower bench, grab bars, no home o2."bethany petty. will cont following as needed for dc needs.
--- NOTE | 2020-10-12 14:11 | NUR ---
ASSUMED CARE OF PT AT 0700. PT IS A&OX4 AND VITAL SIGNS ARE STABLE. PT DENIES PAIN AND PARTICIPATED IN SCHEDULED THERAPIES. DIALYSIS THIS SHIFT. ACCU CHECKS ACHS. LEFT UPPER ARM FISTULA POSITIVE BRUIT AND THRILL. ATTEMPTS TO REMOVE O2 THIS SHIFT FAILED AND PT REMAINS ON 1L O2. HR IRREGULAR WITH RATE <100, PT DENIES SYMPTOMS. FALL PRECAUTIONS IN PLACE AND NURSING WILL CONTINUE TO MONITOR.
[2020-10-12 19:20] VITALS: BP 119/69
--- NOTE | 2020-10-12 23:50 | NUR ---
PT ALERT AND ORIENTED X 4. UP IN CHAIR IN EVENING. ASSISTED TO BED AT HS WITH ASSIST X 1. MELATONIN GIVEN AT HS FOR SLEEP. PT AWAKE AT THIS TIME. BED ALARM ON FOR SAFETY. PT CHECKED ON HOURLY ROUNDS.
[2020-10-13 08:00] VITALS: BP 110/65
--- NOTE | 2020-10-13 15:45 | NUR ---
PATIENT IS ALERT, AND ORIENTED X 2-3, CAN BE FORGETFUL AT TIMES. PATIENT HAD PERIOD OF NAUSEA, SPAT OUT SOME PHLEGM THIS MORNING. SONG LYRICIST (DEXTER) NOTIFIED, CT OF THE ABD/PELVIS NOTED, AND HAS SINCE BEEN COMPLETED. PATIENT TOLERATED BOTH BREAKFAST/LUNCH WELL, NO FURTHER C/O OF N/V NOTED. PATIENT DID COMPLAIN OF NOT BEING ABLE TO SLEEP AT NIGHT. SONG LYRICIST NOTIFIED, SHE ADDED TRAZADONE ORDER TO PATIENT MEDICATION. ACCORDING TO REPORT FROM AMF MECHANIC, PATIENT HAD BOWEL MOVEMENT EARLY THIS MORNING. NO SIGN OF ACUTE DISTRESS NOTED AT THIS TIME, CALL LIGHT IN REACH, WILL CONTINUE TO MONITOR.
[2020-10-13 20:00] VITALS: BP 119/70
[2020-10-13 22:51] LABS: URINE BILIRUBIN 2+ (Negative); URINE BLOOD 3+ (Negative); URINE CLARITY CLOUDY; URINE COLOR YELLOW; URINE GLUCOSE-RANDOM* NEGATIVE (Negative); URINE KETONES 1+ (Negative); URINE LEUKOCYTES-REFLEX TRACE (Negative); URINE NITRITE-REFLEX NEGATIVE (Negative); URINE PROTEIN (DIPSTICK) 2+ (Negative); URINE SPECIFIC GRAVITY 1.025 (1.005-1.035); URINE UROBILINOGEN 0.2 E.U./dl (0.2-1.0)
[2020-10-13 23:03] LABS: ICTOTEST (BILI CONFIRMATORY) Positive (Negative)
[2020-10-13 23:23] LABS: BACTERIA-REFLEX None Seen /HPF (None Seen); CASTS None Seen /LPF (None Seen); CRYSTALS None Seen /LPF (None Seen); MUCUS 0-3 Light strn/LPF (None Seen); SQUAMOUS 0-3 Few /LPF (0-3); URINE RBC 3-10 Few /HPF (0-2); URINE WBC-REFLEX 0-5 Rare /HPF (0-5); YEAST-REFLEX Present (None Seen)
--- NOTE | 2020-10-14 02:02 | NUR ---
ASSESSED AT START OF SHIFT. PT A&OX4. UP WITH ASSIST TO THE BATHROOM UA COLLECTED AND SENT TO LAB. EVENING MEDS GIVEN AND PT BRADLEY IT WELL. FISTULA IN LEFT UA PT GETS DIALYSIS T/TH/SAT. DENIES PAIN. FALL PREC IN PLACE AND CALL LIGHT AT REACH WILL CONT TO MONITOR.
[2020-10-14 07:30] VITALS: BP 122/62
--- NOTE | 2020-10-14 14:05 | NUR ---
ASSUMED CARE OF PT AT 0700. PT IS A&OX4 AND VITAL SIGNS ARE STABLE. PT DENIES PAIN AND PARTICIPATED IN SCHEDULED THERAPIES. ORDERS FOR DIALYSIS THIS SHIFT. PT HAS +2 EDEMA TO BLE AND REPORTS SOME LABORED BREATHING. PT ON 1 LITER OF O2 AT THIS TIME AND ON ATTEMPTS TO REMOVE PT SATS DROP TO 80-85%. FISTULA TO LEFT FOREARM WITH POSITIVE BRUIT AND THRILL. ACCU CHECKS ACHS. FALL PRECAUTIONS IN PLACE AND NURSING WILL CONTINUE TO MONITOR.
[2020-10-14 20:00] VITALS: BP 125/75
--- NOTE | 2020-10-14 23:11 | NUR ---
PT ASSESSMENT COMPLETED AND VSS. MEDS GIVEN ORDERED AND WELL TOLERATED. FALL PRECAUTIONS IN PLACE. DIALYSIS COMPLETED AT HS. FISTULA WNL AND DRESSING DRY AND INTACT. PT ATE HER DINNER AND IS RESTING WELL. DENIES NEEDS. WILL CONTINUE TO MONITOR FREQUENTLY.
[2020-10-15 07:20] VITALS: BP 117/63
--- NOTE | 2020-10-15 09:38 | NUR ---
ASSUMED CARE AT 0700. PATIENT IS ALERT AND ORIENTEDX4. PATIENT BORGES'S, STEEL UNLOADER ARE EQUAL. LUNGS ARE CLEAR. ABD IS SOFT WITH BSX4. PATIENT HAS LEFT FA FISTULA FOR DIALYSIS. PATIENT IS UP WITH ONE WITH GAIT BELT AND WALKER. FALL AND SAFETY PROTOCOLS IN PLACE. DENIES PAIN AT THIS TIME. CONTINUES TO PROGRESS SLOWLY TOWARDS D/C GOALS. UP IN THE CHAIR FOR MEALS. WILL CONTINUE TO MONITER.
--- NOTE | 2020-10-15 17:35 | NUR ---
BS [address] SWENSON NOTIFIED. DIET CHNAGED TO CARB CONTROL DIABETIC DIET. DR. SWENSON STATED "SHE WOULD ADDRESS THE BS ISSUE. PATIENT DIDN'T EAT ANY OF THE DINNER THAT WAS SERVED. WILL CONTINUE TO MONITER.
[2020-10-15 20:00] VITALS: BP 134/70
--- NOTE | 2020-10-15 22:06 | NUR ---
ASSUMED CARE OF PT AT 1915. PT IS A&OX4. IS ON ROOM AIR. REPORTS INTERMITTENT CHRONIC ABD PAIN THAT IS BEING MANAGED WITH THERAPUETIC TECHNIQUES. IS STABLE. IS UP WITH 1 ASSIST, GB, WALKER. FALL PRECAUTIONS & HOURLY ROUNDING CONTINUED THIS SHIFT. LABS & VITALS REVIEWED. WILL CONTINUE TO MONITOR. PT IS CURRENTLY LYING IN BED. CALL LIGHT WITHIN REACH.
[2020-10-16 07:20] VITALS: BP 127/66
[2020-10-16 08:11] LABS: ALBUMIN 2.6 g/dL (3.4-5.0); CALCIUM 9.2 mg/dL (8.5-10.1); CREATININE 4.1 mg/dL (0.6-1.0); PHOSPHORUS 2.4 mg/dL (2.5-4.9); POTASSIUM 3.6 mmol/L (3.5-5.1)
[2020-10-16 11:35] VITALS: BP 110/46
--- NOTE | 2020-10-16 16:15 | NUR ---
ASSUMED CARES AT 0700. PT AWAKE, ALERT AND ORIENTED*4. C/O ABDOMINAL/ EPIGASTRIC PAIN WHEN LYING DOWN IN BED. HR ELEVATED WITH ACTIVITY AND AT REST, PT C/O DIZZINESS THIS WHEN CLIMBING STAIRS WHICH RESOLVED AFTER RESTING. SOB NOTED WITH EXERTION, PT ON 1L VIA NC WITH ACTIVITY, RA AT REST WITH SATS >95%. PT C/O TROUBLE SWALLOWING HAMBURGER AT LUNCH, STATED THAT SHE HAD CHOCKED ON IT AND WAS COUGHING WHEN THIS RN WENT IN. ST AND APPLICATIONS INTERN CONSULTED. UP WITH 1 MIN ASSIST, GB AND WALKER. EDEMA ON BLE AND DISCOLORATION NOTED, EXTREMITIES ELEVATED TOLERATED. Q1H VISUAL CHECKS. CALL LIGHT WITHIN REACH. FALL PRECAUTIONS IN PLACE
[2020-10-16 20:13] VITALS: BP 129/58
--- NOTE | 2020-10-16 20:19 | NUR ---
PT ASSESSMENT COMPLETED. PT DENIES PAIN/N/SOA. PT STATES THAT SHE WANTS TO GO HOME SOON. SHE IS HAVING A HARD TIME OVER THE OF HER AND HAVING TO MOVE FROM HER HOME IN [place] TO STAY WITH HER SON. PT STATES THAT HER SON HAS HER 'S DOG AND THAT THE DOG SCRATCHES HER. SHE SAYS THATS WHAT CAUSED THE CELLULITIS TO HER R CHEST. SHE SAYS THAT THE DOG BIT HER DAUGHTER IN LAW THE OTHER DAY AND SHE HAD TO BE PUT ON ANTIBIOTICS. SHE STATES THAT SHE IS CONCERNED ABOUT BEING AROUND THE DOG WHEN SHE RETURNS TO HER SON'S HOME. RESTING WELL. WILL CONTINUE TO MONITOR FREQUENTLY.
[2020-10-17 04:06] LABS: GLYCOHEMOGLOBIN (HGB A1C) 6.1 % (4.8-5.6)
[2020-10-17 07:20] VITALS: BP 118/68
--- NOTE | 2020-10-17 10:22 | PLAN ---
[facility] [place] [address] REHAB UNIT PLAN OF CARE Name: ZAKIA HERNÁNDEZ Room #: 509-P ADM IN M.R.#: [id number] Admission: 10/11/20 Attend Phys: Samuel Seo MD Discharge: Date of : 42 Report #: [id number] THIS REPORT FOR: cc: Rosalee Longoria MD, Stany A. MD Smithson,Samule Malik MD ~ DATE OF SERVICE: 10/13/2020 PROGRESS NOTE AND OVERALL PLAN OF CARE SUBJECTIVE: The patient is seen back today. She had some nausea without emesis. Notes, she is sleeping well. No other specific complaints. Last recorded temperature is 97.5, pulse 101, respirations 18, blood pressure 119/69. She is mod assist with sit to stand. She is ambulating 35 feet contact guard with a front-wheeled walker. In occupational therapy, lower body dressing is min assist, upper body dressing is standby assistance. OBJECTIVE: ABDOMEN: Bowel sounds were present and normal. Nontender. GENITOURINARY AND RECTAL: Deferred. EXTREMITIES: Functional range of motion of both upper and lower extremities. Strength is grade 4- to 3+/5. ASSESSMENT: 1. Cardiac debility with medical complexity. 2. Right chest wall cellulitis. 3. Volume overload. 4. Sinus tachycardia, improved. 5. Atrial fibrillation, on chronic anticoagulation. 6. End-stage renal disease, on hemodialysis. 7. Anemia of chronic disease. 8. Hypotension, on midodrine. PLAN: The overall plan of care is based on the preadmission screen and information garnered from therapy assessments. 1. Estimated length of stay is probably 7-10 days, potentially longer if needed. 2. Medical prognosis is reasonably good. 3. Anticipated interventions includes the interdisciplinary acute inpatient rehabilitation program. 4. Anticipated functional outcomes would be for the patient to become modified independent with transfers, mobility, ADLs, so she can hopefully return back to her prior living situation.0 5. Discharge destination would be back to the home setting where she lives with her son and [id number]. [address] [address] REHAB UNIT PLAN OF CARE Name: ZAKIA HERNÁNDEZ Room #: 509-P ADM IN M.R.#: [id number] Admission: 10/11/20 Attend Phys: Samuel Seo MD Discharge: Date of : 42 Report #: [id number] 6. Expected therapy by discipline includes PT and OT 1-1/2 hours per day each 5 days a week throughout the duration of the acute inpatient rehabilitation stay. The patient's prognosis for significant practical improvement within a reasonable period of time appears good. Given the patient's complex medical condition and risk of further medical complications, rehabilitation services could not be safely provided at a lower level of care such as a senior living facility. <ELECTRONICALLY SIGNED> By: Samuel Seo MD 10/17/20 1022 1258 2035 Samuel Seo MD /ARTHUR
--- NOTE | 2020-10-17 10:41 | NUR ---
ASSUMED CARE AT 0700. PATIENT IS ALERT AND ORIENTED X4. PATIENT BORGES'S, WARP PICKER ARE EQUAL. LUNGS ARE CLEAR. PATIENT HAS 2+ EDEMA IN HER LOWER EXTREMITIES. PATIENT HAS LEFT UPPER ARM GRAFT FOR HEMODIALYSIS. PLAN DIALYSIS LATER TODAY. PATIENT FINISHED HER PO ABT TODAY. FALL AND SAFETY PROTOCOLS IN PLACE. DENIES PAIN AT THIS TIME. CONTINUES TO PROGRESS SLOWLY TOWARDS D/C GOALS. WILL CONTINUE TO MONITER.
--- NOTE | 2020-10-17 16:25 | NUR ---
TEAM: PT WAS WEANED OFF O2. D/T CHOKING INCIDENT PT SCHEDULED FOR VIDEO SWALLOW STUDY KANCHAN. D/C SET FOR 10/19 W/HH: RN, PT, OT, ST. PT NOR SON HAS HH PREFERENCE. PT WOULD LIKE TO HAVE HOME CARE SERVICE. PT WILL NEED TO F/U W/MEDICAID ONCE/IF MEDICAID IS APPROVED. KRANTHI EDU PT AND DOM ON THE PROCESS. FITO IS WORKING FROM HOME AND CAN PROVIDE ASSIST TO PT AND HELP W/MED MANAGEMENT AND FINANCES.
--- NOTE | 2020-10-17 16:29 | NUR ---
CM SENT REFERRAL TO [facility]. [phone].
[2020-10-17 19:50] VITALS: BP 125/79
--- NOTE | 2020-10-17 21:58 | NUR ---
ASSUMED CARE OF PT AT 1915. PT IS A&OX4. IS ON ROOM AIR. DENIES PAIN AT THIS TIME. IS STABLE. IS UP WITH 1 ASSIST, GB, WALKER. FALL PRECAUTIONS & HOURLY ROUNDING CONTINUED THIS SHIFT. PT HAD DIALYSIS TODAY WHICH COMPLETED AT THE START OF THIS SHIFT. 2.5L OFF ACCORDING TO DIALYSIS NURSE. AV FISTULA IN LFA. DRSG C/D/I. PT IS CURRENTLY SITTING UP IN BED ON PHONE. ALARM ON. LABS & VITALS REVIEWED. CALL LIGHT WITHIN REACH. WILL CONTINUE TO MONITOR.
[2020-10-18 08:00] VITALS: BP 117/71
[2020-10-18 09:13] LABS: APTT 30.5 Seconds (24.5-32.8); INR 1.2
--- NOTE | 2020-10-18 10:44 | NUR ---
F/U ON REFERRAL TO [facility] HH SPOKE WITH DONAL IN INTAKE SHE CAN ACCEPT ON DC 10/19.
[2020-10-18 10:45] VITALS: BP 117/71
--- NOTE | 2020-10-18 12:09 | NUR ---
Pt having thoracethesis today as well as video swallow test. All parties anticipating dc to home with family tomorrow. [facility] has accepted and will need dc orders faxed tomorrow. Pt to dc after am dialysis tx with family. Dialysis scheduled for firt thing tomorrow.
[2020-10-18 12:29] LABS: CLARITY TURBID; COLOR RED; SOURCE RIGHT CHEST; TOTAL VOLUME 60 mL
[2020-10-18 13:05] LABS: BF NUCLEATED CELLS 699 /mm3; BF RBC 1203835 /mm3
[2020-10-18 14:48] LABS: BF MACROPHAGE 14 %; BF NEUTROPHILS 44 %
[2020-10-18 19:47] VITALS: BP 108/58
--- NOTE | 2020-10-18 22:11 | NUR ---
PT ASSESSMENT COMPLETED AND VSS. MEDS GIVEN ORDERED AND WELL TOLERATED. FALL PRECAUTIONS IN PLACE. SLEEP MEDICATION HELPFUL. DSG ON BACK FROM THORACENTESIS DRY AND INTACT. SAT WNL ON NC. COUGH MEDICATION HELPFUL FOR MILD COUGH. DAILYSIS ACCESS WNL. PT DENIES NEEDS. SLEEPING WELL. WILL CONTINUE TO MONITOR FREQUENTLY.
[2020-10-19 08:00] VITALS: BP 111/66
[2020-10-19] MEDS ORDERED: ELIQUIS2.5 MG PO (08:57)
[2020-10-19] MEDS ORDERED: MIDODRINE HCL 55 M1 PO (08:57)
[2020-10-19] MEDS ORDERED: METOPROLOL SUCC50 MG PO (08:57)
[2020-10-19] MEDS ORDERED: REMERON 30 MG T30 M1 PO (08:57)
[2020-10-19] MEDS ORDERED: VITAMIN D325 MC1 PO (09:05)
[2020-10-19] MEDS ORDERED: NEPHRO-VITE RX1 TA1 PO (09:07)
[2020-10-19] MEDS ORDERED: CLARITIN10 M2 PO (09:56)
[2020-10-19] MEDS ORDERED: BENZONATATE100 MG PO (09:56)
--- NOTE | 2020-10-19 10:25 | NUR ---
cm faxed orders to [facility]. [phone].
[2020-10-19 10:46] VITALS: BP 117/71
[2020-10-19 12:32] VITALS: BP 117/71
[2020-10-19 14:07] LABS: BODY FLUID ALBUMIN 1.7 g/dL (Not Estab.); BODY FLUID AMYLASE 38 U/L (()); BODY FLUID GLUCOSE 121 mg/dL (()); BODY FLUID LDH 205 IU/L (()); BODY FLUID PROTEIN 3.6 g/dL (())
--- NOTE | 2020-10-19 14:50 | NUR ---
ASSUMED CARE OF THE PATIENT AT 0700. PT IS A&OX4 AND VITAL SIGNS ARE STABLE. PT DENIES PAIN. PLANS FOR DISCHARGE TODAY. NO DIALYSIS PRIOR TO D/C AND HAS SCHEDULED APPOINTMET AT CLINIC TOMORROW. SON ON THE UNIT THIS AFTERNOON FOR DISCHARGE. REVIEWED DISCHARGE INSTRUCTIONS, EDUCATION, MEDICATIONS, F/U APPOINTMENTS, AND GIVEN OPPORTUNITY TO ASK QUESTIONS DISCHARGE PACKET SENT WITH PATIENT AND SON. PT AND SON DENY QUESTIONS AT DISCHARGE. MEDICATIONS SENT TO PHARMACY. DISCHARGED FROM UNIT AT 1430, PT ASSISTED TO MAIN DOOR BY NURSING AND REQUIRED SETUP ASSISTANCE TO TRANSFER INTO CAR.
[2020-10-20 10:39] LABS: SOURCE CHEST
--- NOTE | 2020-10-20 16:06 | PATH ---
[facility] [address] [place] [address] PATHOLOGY RPT PROCEDURE Name: ZAKIA HERNÁNDEZ Room #: 509-P DIS IN M.R.#: [id number] Admission: 10/11/20 Date of : 42 Discharge: 10/19/20 Report #: [id number] Path Case #: [id number] Note [facility] Accession Number: [id number] TESTS RESULT FLAG UNITS REF RANGE LAB Clinician Provided Cytology Information No. of containers..01 Other (Miscellaneous) Source: PLEURAL FLUID DIAGNOSIS: 02 PLEURAL FLUID NEGATIVE FOR MALIGNANT EPITHELIAL CELLS. RARE REACTIVE MESOTHELIAL CELLS ARE PRESENT. THIS INTERPRETATION INCLUDES EVALUATION OF A CELL BLOCK. SCANT CELLULARITY WITH MILD CHRONIC INFLAMMATION. Pathologist ICD10: 02 R53.81 Signed out by: 02 Latia Theodore MD, Pathologist NPI- [id number] Performed by: Clarissa Santana, Terrazzo Tile Setter ([facility]) Gross description: 01 30ML, RED, 1TP 1CB /LCS 10/19/2020 0740 Local FLAG LEGEND: L-Low Normal,H-High Normal,LL-Alert Low,HH-Alert High <-Panic Low,>-Panic High,A-Abnormal,AA-Critical Abnormal Performed at: [address] [place] [address] Alex Brady MD, [address] [address] Latia Theodore MD, Specimen Comment: A courtesy copy of this report has been sent to [phone], [phone] Specimen Comment: [id number] Specimen Comment: Report sent to DR HINKLE / DR HAWTHORNE Specimen Comment: A duplicate report has been generated due to demographic updates. Performed at: [address], [place], [place] [id number] [address] [address] PATHOLOGY RPT PROCEDURE Name: ZAKIA HERNÁNDEZ Room #: 509-P DIS IN M.R.#: [id number] Admission: 10/11/20 Date of : 42 Discharge: 10/19/20 Report #: [id number] Path Case #: [id number] MD Alex Brady MD Phone: [phone]
== END 2020-10-19 14:59 | disposition home health service (06) | DRG 947 ==
PROVIDERS: Hospitalist; Nurse Practitioner; Nurse Practitioner Family; ADMIT Physical Medicine & Rehabilitation; ATTEND Physical Medicine & Rehabilitation
PROC: 5A1D70Z Performance of Urinary Filtration, Intermittent, Less than 6 Hours Per Day (ICD-10-PCS; principal; 2020-10-12)
PROC: 5A1D70Z Performance of Urinary Filtration, Intermittent, Less than 6 Hours Per Day (ICD-10-PCS; 2020-10-17)
PROC: 0W993ZZ Drainage of Right Pleural Cavity, Percutaneous Approach (ICD-10-PCS; 2020-10-18)
PROC: 5A1D70Z Performance of Urinary Filtration, Intermittent, Less than 6 Hours Per Day (ICD-10-PCS; 2020-10-19)
DX: R53.81 Other malaise (principal); J96.01 Acute respiratory failure with hypoxia; N18.6 End stage renal disease; E43 Unspecified severe protein-calorie malnutrition; A41.50 Gram-negative sepsis, unspecified; E44.0 Moderate protein-calorie malnutrition; L03.313 Cellulitis of chest wall; I42.9 Cardiomyopathy, unspecified; J91.8 Pleural effusion in other conditions classified elsewhere; I12.0 Hypertensive chronic kidney disease with stage 5 chronic kidney disease or end stage renal disease; E03.9 Hypothyroidism, unspecified; E55.9 Vitamin D deficiency, unspecified; D63.8 Anemia in other chronic diseases classified elsewhere; F32.9 Major depressive disorder, single episode, unspecified; K21.9 Gastro-esophageal reflux disease without esophagitis; M10.9 Gout, unspecified; E87.70 Fluid overload, unspecified; I95.9 Hypotension, unspecified; I25.10 Atherosclerotic heart disease of native coronary artery without angina pectoris; S61.259A Open bite of unspecified finger without damage to nail, initial encounter; G47.00 Insomnia, unspecified; I48.0 Paroxysmal atrial fibrillation; E11.22 Type 2 diabetes mellitus with diabetic chronic kidney disease; K74.60 Unspecified cirrhosis of liver; E11.65 Type 2 diabetes mellitus with hyperglycemia; F43.20 Adjustment disorder, unspecified; Z99.2 Dependence on renal dialysis; Z79.01 Long term (current) use of anticoagulants; Z95.1 Presence of aortocoronary bypass graft; Z91.041 Radiographic dye allergy status; Z90.49 Acquired absence of other specified parts of digestive tract; Z68.25 Body mass index [BMI] 25.0-25.9, adult; Z79.899 Other long term (current) drug therapy
CPT/HCPCS: 10112; 32100

== ENCOUNTER 2020-10-25 17:07 | Inpatient (IN) | payer OTHER ==
[~2020-10-25] VITALS: Ht 167.6 cm; Wt 65.3 kg
[~2020-10-25 17:07] MED LIST changes: +BENZONATATE100 MG PO; +CLARITIN10 M2 PO; +METOPROLOL SUCC50 MG PO; +NEPHRO-VITE RX1 TA1 PO; +REMERON 30 MG T30 M1 PO; +VITAMIN D325 MC1 PO
[2020-10-25 17:30] VITALS: BP 91/35
[2020-10-25 17:56] LABS: ABSOLUTE NEUTROPHILS 4.9 thou/uL (1.4-8.2); BASOPHILS 0.6 % (0.0-2.0); EOSINOPHILS 0.3 % (0.0-3.0); HEMATOCRIT 35.4 % (37.0-47.0); HEMOGLOBIN 11.4 gm/dL (12.0-15.0); LYMPHOCYTES 5.8 % (24.0-44.0); MCH 30.9 pg (26.0-34.0); MCV 96.6 fL (80.0-100.0); PLATELET COUNT 181 thou/uL (150-400); POLYS 82.3 % (36.0-66.0); RBC 3.67 mil/uL (4.20-5.00); RDW 19.6 % (10.5-14.5); WBC 5.9 thou/uL (4.0-11.0)
[2020-10-25 18:04] LABS: ANION GAP 5 mmol/L (7-16); BUN 13 mg/dL (7-18); CALCIUM 8.7 mg/dL (8.5-10.1); CHLORIDE 96 mmol/L (98-107); CO2 33 mmol/L (21-32); CREATININE 2.4 mg/dL (0.6-1.0); GLUCOSE 159 mg/dL (74-106); POTASSIUM 3.4 mmol/L (3.5-5.1); SODIUM 134 mmol/L (136-145)
[2020-10-25 18:12] LABS: TROPONIN-I <0.06 ng/mL (<0.06)
[2020-10-26] VITALS (10 sets, daily range): BP systolic 92–134; BP diastolic 46–81
--- NOTE | 2020-10-26 05:17 | NUR ---
ASSESSMENT: PT ARRIVED TO THE UNIT VIA ED, ACCOMPANIED BY STAFF. PT IS ALERT AND ORIENT TIMES THREE, FORGETFUL AT TIMES. PT IS VERY SLEEP, SLEEP INTERUPTED. DID ANSWER QUESTIONS APPROPRIATELY. LEFT FA FISTULA +BRUIT AND THRILL. NO SKIN BREAKDOWN NOTED. NPO FOR NOW PER ORDERS. SR PER MONITOR. HX OF AFIB. UA AND MRSA/PCR PENDING. BP CHRONICALLY LOW, PT TAKES MIDODRINE. LE DARK, LEATHERY AND PT STATES THAT HER TOES TINGLE AND FEEL NUMBNESS IN LE. 4 LITERS PER NC WITH SATS IN HIGH 90'S. DENIES PAIN. SOB WITH EXERTION. WILL CONTINUE TO MONITOR.
[2020-10-26 06:11] LABS: HEMATOCRIT 38.6 % (37.0-47.0); HEMOGLOBIN 12.1 gm/dL (12.0-15.0); MCHC 31.4 g/dL (28.0-37.0); MCV 98.9 fL (80.0-100.0); RBC 3.9 mil/uL (4.20-5.00); RDW 19.7 % (10.5-14.5); WBC 4.4 thou/uL (4.0-11.0)
[2020-10-26 06:39] LABS: CALCIUM 8.4 mg/dL (8.5-10.1); CREATININE 2.8 mg/dL (0.6-1.0); MAGNESIUM 1.9 mg/dL (1.8-2.4); POTASSIUM 3.7 mmol/L (3.5-5.1)
--- NOTE | 2020-10-26 07:20 | EKG ---
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1940 Requested By: Urbano Mena Order Number: [id number] MD: Mau Yang Measurements Intervals [place] Rate: 104 P: LA: QRS: 192 QRSD: 117 T: 125 QT: 336 QTc: 442 Interpretive Statements Atrial flutter with predominant 2:1 AV block Nonspecific intraventricular conduction delay Nonspecific T abnormalities, lateral leads Compared to ECG 10/09/2020 09:01:50 No significant change Electronically Signed On 10-26-2020 7:19:58 VP CARDIOVASCULAR by Mau Yang [email or web address] <ELECTRONICALLY SIGNED> By: Mau Yang MD, [facility] 10/26/20 0719 1724 172 Mau Yang MD, [facility] /EPI
--- NOTE | 2020-10-26 14:14 | NUR ---
INITIAL ASSESSMENT: PIPE reviewed chart and spoke with nursing. Pt was admitted from home due to CHF/Pneumonia. Pt placed in Enhanced Isolation due to COVID-19. Pt is afebrile and on 2L of O2. Pt is on IV abx. ID consulted. Pt was recently on [facility] 5N and discharged home on 10/19 with Simran ANDREWS. Pt goes to outpatient dialysis at [facility] -- at 0630. PIPE placed call to pt's room. No answer. PIPE spoke with pt's son, Aguila, via phone. Introduced role of SW. Pt lives at home with Aguila and his family. Prior to admission, pt was using a walker. No use of O2 prior to admission. Pt's PCP is Dr. Lei. Unsure of discharge timeframe. PIPE placed call to pt's dialysis clinic ( ). No option to leave voice message. Clinic will be opened on Friday. Pt may need to go to a different dialysis clinic upon discharge due to COVID. Plan is for pt to discharge home when medically stable. PIPE is following to assist as needed with discharge planning.
--- NOTE | 2020-10-26 17:08 | NUR ---
RN ASSUMED PT'S CARE AT O700AM, PT IS A&OX3, PT CAN FOLLOW COMMANDS, PT IS ON O2 2L/MIN/NC, PT'S VS ARE STABLE,ID HAS SEEING THIS PT, PT STARTS IV ABX, PT HAS DIALYSIS TODAY, REMOVAL 900ML FLIUD, PT FELL TIRED ,BUT PT DEINES PAIN AND SOB BY THIS TIME.
--- NOTE | 2020-10-26 22:59 | NUR ---
PT ALERT AND ORIENTED X4 . VSS. UNLABORED ON 2LNC.AFIB ON MONITOR. NO C/O PAIN. NO S/S DISTRESS. NO BLEEDING NOTEFD FROM LAV FISULA. WILL CONTINUE TO MONITOR PT FOR CHANGES.
[2020-10-27 03:40] VITALS: BP 110/58
--- NOTE | 2020-10-27 04:15 | NUR ---
PT VSS AFEBRILE UNLABORED ON 2LNC RLL COARSE. DENIED SOA. NO S/S DISTRESS.
[2020-10-27 08:10] VITALS: BP 128/69
[2020-10-27 08:30] VITALS: BP 103/53
--- NOTE | 2020-10-27 09:15 | HC ---
[facility] [place] [address] CONSULTATION Name: ZAKIA HERNÁNDEZ Room #: 350-P ADM IN M.R.#: [id number] Admission: 10/25/20 Attend Phys: Michael Russo MD Discharge: Date of : 42 Report #: [id number] THIS REPORT FOR: cc: Rosalee Longoria MD, Stany A. MD Barry, Joseph W. MD ~ DATE OF SERVICE: 10/26/2020 INFECTIOUS DISEASE CONSULTATION ATTENDING PHYSICIAN: Dr. Michael Russo. REASON FOR EVALUATION: COVID-19 infection, complicated by progressive dyspnea and weakness. HISTORY OF PRESENT ILLNESS: Chart reviewed, patient examined. This is a 80-year-old woman known to myself, who was recently hospitalized with capnocytophaga septicemia, felt to be secondary to a dog bite on her right hand. She is noted to have significant medical disease burden including end-stage renal disease, on dialysis, has cardiomyopathy with congestive heart failure, who was admitted in the rehabilitation unit, possibly exposed, was confirmed to be positive for COVID based on antigen testing, was transferred to the unit. Chest x-ray actually has improved, does have persistent cardiomegaly, infiltrates and effusion, TSH is still elevated, known history of hypothyroidism, now back on therapy. ProBNP is 58,659 as well. She admits to cough. She is on oxygen support, had been initiated on 4 liters, now down to 2 liters with saturations 100%. She is currently undergoing dialysis. She was initiated therapy with azithromycin, ceftriaxone and vancomycin. ALLERGIES: Listed to IODINE. CURRENT MEDICATIONS: Include vancomycin, midodrine, dexamethasone, allopurinol, amiodarone, metoprolol, sertraline, pantoprazole, levothyroxine, mirtazapine, apixaban, insulin sliding scale. PAST MEDICAL HISTORY: As described above, history of hypertension, widespread vasculopathy, coronary artery disease, previous aortocoronary bypass grafting, end-stage renal disease, on dialysis, has cardiomyopathy, history of congestive heart failure, atrial fibrillation, reflux, gout, depression. SOCIAL HISTORY: Available in chart. FAMILY HISTORY: Available in chart as well. REVIEW OF SYSTEMS: Otherwise unremarkable 10-point review of systems. [address] [address] CONSULTATION Name: ZAKIA HERNÁNDEZ Room #: [address] [place] [address] IN M.R.#: [id number] Admission: 10/25/20 Attend Phys: Michael Russo MD Discharge: Date of : 42 Report #: [id number] PHYSICAL EXAMINATION: GENERAL: She appears chronically ill, undernourished. She is pleasant, cooperative, in [id number] distress. VITAL SIGNS: Temperature 97.5, pulse 84, respirations 16, blood pressure 98/50, saturation 100% on 2 liters nasal cannula. HEENT: Otherwise unremarkable. Normocephalic. NECK: Supple. LUNGS: Few scattered coarse breath sounds, diminished particularly at the bases. HEART: Irregular, do not appreciate murmur. ABDOMEN: Mildly distended, soft, nontender. EXTREMITIES: No cyanosis. GENITOURINARY AND RECTAL: Deferred. LABORATORY DATA: MRSA screen was negative. Most recent electrolytes: Sodium 134, potassium 3.7, chloride 98, bicarbonate is 28, BUN and creatinine 19 and 2.8. Predialysis, glucose of 157. CBC: White count of 4.4, H and H 12.1 and 38.9, platelets of 151. COVID antigen was positive. ASSESSMENT: COVID-19 infection, complicated by pneumonitis, likely multifactorial and respiratory failure, end-stage renal disease, on dialysis, cardiomyopathy with congestive heart failure. We will continue empiric therapy with vancomycin at this point, dose with dialysis. Continue ceftriaxone. We will add ivermectin as well to her regimen. She is on corticosteroids, adding additional vitamins. She remains tenuous at baseline. We will monitor expectantly. <ELECTRONICALLY SIGNED> By: Mane Franks MD 10/27/20 0915 [id number] [id number] Mane Franks MD /nt
[2020-10-27 13:08] VITALS: BP 104/58
[2020-10-27 16:30] VITALS: BP 103/53
--- NOTE | 2020-10-27 16:30 | NUR ---
RN ASSUMED PT'S CARE AT 0700AM, PT IS A&OX3, PT IS ON O2 2L/MIN/NC TO KEEP O2SAT > 93%, PT'S VS ARE STABLE AT THIS TIME, PT IS CONTINUING IV ABX , PT DENIES SOB BY THIS TIME.
[2020-10-27 19:25] VITALS: BP 106/61
[2020-10-28 03:10] VITALS: BP 117/69
--- NOTE | 2020-10-28 03:22 | NUR ---
ASSUMED PT CARE APPROX AT 2300. PT RESTING IN BED AT TIME OF ASSUMPTION OF CARE. PT NOTIFIED STAFF REPORTING DIFFICULTY GETTING TO SLEEP. ONCALL DRY WALL NAILER NOTIFIED, RECEIVED ORDERS FOR ONETIME PO 10MG MELATONIN. PT AOX4. PT DENIES PAIN AND SOB WHILE AT REST ON 2L VIA NC. PT REPORTS SOB WITH EXERTION. PT HAS PRN PO APAP Q6HR AVAILABLE. PT TOLERATING PO INTAKE OF FLUIDS AND DIABETIC/RENAL DIET WITHOUT ISSUE. PT RESTING IN BED THROUGHOUT SHIFT, AMBULATING WITH X1-2 ASSIST TO BATHROOM. PT NOTED TO HAVE FRAGILE SKIN WITH SKIN TEAR TO RIGHT FOREARM, SITE CLEANED WITH NS, APPROXIMATED WITH STERI STRIPS APPLIED. PT ENCOURAGED TO NOTIFY STAFF FOR ALL NEEDS, CALL LIGHT WITHIN REACH, BED ALARM ON, BED IN LOWEST POSITION, FREQUENT MONITORING WILL CONTINUE.
[2020-10-28 05:59] LABS: CALCIUM 8.7 mg/dL (8.5-10.1); CREATININE 3.3 mg/dL (0.6-1.0); PHOSPHORUS 4.4 mg/dL (2.5-4.9)
[2020-10-28 07:15] VITALS: BP 122/78
[2020-10-28 08:30] VITALS: BP 121/73
[2020-10-28 11:22] VITALS: BP 121/73
[2020-10-28 15:39] VITALS: BP 135/76
--- NOTE | 2020-10-28 16:58 | NUR ---
RN ASSUMED PT'S CARE AT 0700AM, PT IS A&OX3 , PT IS ON O2 2L/MIN/NC, PT IS CONTINUING IV ABX, PT 'S VS ARE STABLE, PT IS TOLERATIVE DIALYSIS TODAY, MOVAL 2500 ML FLUID, PT GETS UP TO BATH ROOM WITH WALKER, PT DENIES SOB AND PAIN BY THIS TIME.
[2020-10-28 19:18] VITALS: BP 113/69
[2020-10-29 03:57] VITALS: BP 117/78
--- NOTE | 2020-10-29 04:09 | NUR ---
Pt. didn't sleep much last night. C/O headache due to coughing , tylenol given with some relief. Maintaining O2 sat greater than 90% on 2L/NC. She does get short of breath with exertion. Cont. on enhanced precaution ,afebrile. A fib with HR in the low 100's at rest then 110's with activities. Oliguric ,pt. on dialysis.
[2020-10-29 07:45] VITALS: BP 134/76
[2020-10-29] MEDS ORDERED: CEFUROXIME500 MG PO (09:23)
[2020-10-29] MEDS ORDERED: PREDNISONE 5 MG5 M1 PO (09:23)
--- NOTE | 2020-10-29 10:12 | NUR ---
PT CARE ASSUMED AT 0700. A&Ox4. SINUS TACH ON THE MONITOR. ON RA BUT GET SOB WITH EXCURCION. NON PRODUCTIVE COUGH. LUNGSOUNDS DIMINISHED RAILS. ACHS WIH COVERAGE. DIALYSIS MO,WE,FR. IV PATENT WITH NO REDNESS OR EDEMA, SALINE LOCKED. SKIN TEAR ON RIGHT FOREARM. IV REMOVED. DISCHARGE INSTRUCTION GIVEN WITH NO FURSTHER QUESTIONS FROM PATIENTS. FALL PROTOCOL IN PLACE. WILL CONTINUE TO MONITOR.
[2020-10-29 10:22] VITALS: BP 134/76
== END 2020-10-29 11:15 | disposition home or self-care (01) | DRG 177 ==
LOC: ER 17:07 → 3W 19:55 → EROBS 19:55 → 3W 10-26 02:01
PROVIDERS: Internal Medicine Nephrology; Nurse Practitioner; Nurse Practitioner Family; ADMIT Hospitalist; ATTEND Hospitalist
PROC: 5A1D70Z Performance of Urinary Filtration, Intermittent, Less than 6 Hours Per Day (ICD-10-PCS; principal; 2020-10-26)
DX: U07.1 COVID-19 (principal); I50.33 Acute on chronic diastolic (congestive) heart failure; N18.6 End stage renal disease; J12.89 Other viral pneumonia; J96.21 Acute and chronic respiratory failure with hypoxia; I13.2 Hypertensive heart and chronic kidney disease with heart failure and with stage 5 chronic kidney disease, or end stage renal disease; I42.9 Cardiomyopathy, unspecified; K21.9 Gastro-esophageal reflux disease without esophagitis; E03.9 Hypothyroidism, unspecified; M10.9 Gout, unspecified; F32.9 Major depressive disorder, single episode, unspecified; I25.10 Atherosclerotic heart disease of native coronary artery without angina pectoris; I48.0 Paroxysmal atrial fibrillation; E11.22 Type 2 diabetes mellitus with diabetic chronic kidney disease; I95.9 Hypotension, unspecified; E78.5 Hyperlipidemia, unspecified; E78.00 Pure hypercholesterolemia, unspecified; Z60.2 Problems related to living alone; D64.9 Anemia, unspecified; I27.20 Pulmonary hypertension, unspecified; Z79.899 Other long term (current) drug therapy; Z99.2 Dependence on renal dialysis; Z90.49 Acquired absence of other specified parts of digestive tract; Z95.1 Presence of aortocoronary bypass graft; Z91.041 Radiographic dye allergy status
CPT/HCPCS: 10879; 32100

== ENCOUNTER 2020-10-31 18:15 | Inpatient (IN) | payer OTHER ==
[~2020-10-31] VITALS: Ht 167.6 cm; Wt 54.2 kg
[~2020-10-31 18:15] MED LIST changes: +CEFUROXIME500 MG PO; +PREDNISONE 5 MG5 M1 PO
[2020-10-31 18:16] VITALS: BP 138/87
[2020-10-31 18:57] LABS: BE(vivo) 2.7 mmol/L (-2 to +3); HCO3 27.1 mmol/L (22.0-26.0); PO2 90.1 mmHg (80.0-100.0); pH 7.438 (7.360-7.450); sO2 97.1 % (92.0-98.0)
[2020-10-31 19:27] LABS: ABSOLUTE NEUTROPHILS 12.5 thou/uL (1.4-8.2); HEMATOCRIT 34.7 % (37.0-47.0); HEMOGLOBIN 11.3 gm/dL (12.0-15.0); LYMPHOCYTES 1.3 % (24.0-44.0); MCH 30.9 pg (26.0-34.0); MCHC 32.5 g/dL (28.0-37.0); MCV 95.1 fL (80.0-100.0); MONOCYTES 1.6 % (1.0-8.0); PLATELET COUNT 159 thou/uL (150-400); POLYS 97.1 % (36.0-66.0); RBC 3.65 mil/uL (4.20-5.00); RDW 19.3 % (10.5-14.5); WBC 12.9 thou/uL (4.0-11.0)
[2020-10-31 19:33] LABS: CALCIUM 8.8 mg/dL (8.5-10.1); CREATININE 2.3 mg/dL (0.6-1.0); POTASSIUM 3.3 mmol/L (3.5-5.1)
[2020-10-31 19:43] LABS: ALBUMIN 2.1 g/dL (3.4-5.0); DIRECT BILIRUBIN 0.5 mg/dL (<0.1-0.2); TOTAL BILIRUBIN 0.9 mg/dL (0.2-1.0); TROPONIN-I 0.07 ng/mL (<0.06)
[2020-11-01 05:34] LABS: HEMATOCRIT 36.9 % (37.0-47.0); HEMOGLOBIN 11.7 gm/dL (12.0-15.0); MCH 30.5 pg (26.0-34.0); MCHC 31.8 g/dL (28.0-37.0); RBC 3.85 mil/uL (4.20-5.00); RDW 19.3 % (10.5-14.5); WBC 12.5 thou/uL (4.0-11.0)
[2020-11-01 06:13] LABS: ALBUMIN 2.1 g/dL (3.4-5.0); CALCIUM 8.4 mg/dL (8.5-10.1); CREATININE 2.5 mg/dL (0.6-1.0); POTASSIUM 3.2 mmol/L (3.5-5.1); TOTAL BILIRUBIN 0.8 mg/dL (0.2-1.0); TOTAL PROTEIN 6.5 g/dL (6.4-8.2)
--- NOTE | 2020-11-01 07:25 | EKG ---
[place] [address] [facility] [place] [address] ELECTROCARDIOGRAM REPORT Name: EDGARZAKIA Room #: 170-11 ADM IN M.R.#: [id number] Admission: 10/31/20 Attend Phys: Mara Altamirano Discharge: Date of : 42 Report #: [id number] [facility] ED Test Date: 2020-10-31 Test Time: 20:20:37 Pat Name: ZAKIA HERNÁNDEZ Department: Room: 170 Gender: F Station Air Traffic Control Specialist: chato : 1940 Requested By: Florence Vasquez Order Number: [id number] MD: Mau Yang Measurements Intervals D [place] Rate: 100 P: HI: QRS: -151 QRSD: 119 T: 174 QT: 368 QTc: 475 Interpretive Statements AFIB Incomplete right bundle branch block Abnormal T, consider ischemia, lateral leads Compared to ECG 10/25/2020 17:24:35 Incomplete right bundle-branch block now present Intraventricular conduction delay no longer present T-wave abnormality still present Electronically Signed On 11-01-2020 7:25:15 [employer]PER[employer] by Mau aYng [email or web address] <ELECTRONICALLY SIGNED> By: Mau Yang MD, FACC 11/01/20 0725 19 19 Mau Yang MD, FAC /EPI
--- NOTE | 2020-11-01 09:27 | NUR ---
FAMILY HAS REQUESTED THAT CASE MANAGEMENT CONTACT THEN PRIOR TO DISCHARGE, SHE LIVES WITH FAMILY WHO ARE ALL SICK WITH COVID
--- NOTE | 2020-11-01 13:23 | NUR ---
80-year-old female with a history of chronic diastolic heart failure, PAfib, ESRD on hemodialysis M-W-F, hypoxic respiratory failure, hypertension, CAD s/p CABG, HLD, hypothyroidism, DM 2, depression, and gout who presents to the ED with SOA. Patient was admitted by hospitalist for: Acute on chronic hypoxic respiratory failure, COVID-19 + with Pneumonia. Tested Positive 10/25/20. (CXR- Multifocal alveolar infiltrates have progressed, concerning for atypical infection such as Covid pneumonia). Sepsis secondary to COVID PNA and Lactic acid level of 4.3, ESRD, and Acute on Chronic Diastolic HF. ID and Pulmonology have been consulted. Patient was last discharged on 10-26-2020 to home with [facility] ([phone]) was notified by PIPE. Patient discharged home where she lives with son Aguila and his family. Spoke with bethany Sheehan on 11-01-2020 at 1315 at [phone] and re-introduced role of CM. Son remembers working with PIPE Aldana at the patients last stay in the hospital. Son currently home with Covid and conveyed is able to take calls as his mother's treatment plan and progression continues. CM will continue to follow case for discharge needs.
--- NOTE | 2020-11-01 14:28 | NUR ---
PER DR. POLLARD PT TO GO TO THE ICU
--- NOTE | 2020-11-01 16:09 | NUR ---
On 11-01-2020 at 1600 spoke with daughter in law Corina Aragon of [place] at [phone] who too is positive. She states patient has been weaker over months and incontinent, that and her spouse the patients son has many health issues himself and they have now spoken and would like to look at skilled care upon discharge. Will have CM follow for short term skilled verses acute rehab needs at discharge.
--- NOTE | 2020-11-01 17:24 | NUR ---
VAT PLACED A RT TLIJCL, CXR CONFIRMING TIP AT THE [facility], PLEASE SEE NI FOR DETAILS
[2020-11-02] VITALS (33 sets, daily range): BP systolic 95–148; BP diastolic 51–94
[2020-11-02 05:08] LABS: ABSOLUTE NEUTROPHILS 12.7 thou/uL (1.4-8.2); BASOPHILS 0.3 % (0.0-2.0); HEMATOCRIT 38.2 % (37.0-47.0); HEMOGLOBIN 12.1 gm/dL (12.0-15.0); LYMPHOCYTES 3.6 % (24.0-44.0); MCH 30.6 pg (26.0-34.0); MCHC 31.8 g/dL (28.0-37.0); MCV 96.2 fL (80.0-100.0); MONOCYTES 2.1 % (1.0-8.0); PLATELET COUNT 146 thou/uL (150-400); RBC 3.97 mil/uL (4.20-5.00); RDW 19.9 % (10.5-14.5); WBC 13.5 thou/uL (4.0-11.0)
[2020-11-02 09:06] LABS: BE(vivo) 5.3 mmol/L (-2 to +3); HCO3 29.5 mmol/L (22.0-26.0); PCO2 42.1 mmHg (35.0-45.0); PO2 53.8 mmHg (80.0-100.0); pH 7.464 (7.360-7.450); sO2 89.6 % (92.0-98.0)
--- NOTE | 2020-11-02 09:50 | NUR ---
SPOKE WITH DR. GARRETT REGARDING ABG'S, HE ORDERED AIRVO. CALLED TO INFORM RT AT THIS TIME
--- NOTE | 2020-11-02 11:12 | HC ---
[facility] [place] [address] CONSULTATION Name: ZAKIA HERNÁNDEZ Room #: 170-11 ADM IN M.R.#: [id number] Admission: 10/31/20 Attend Phys: Mara Altamirano Discharge: Date of : 42 Report #: [id number] THIS REPORT FOR: cc: Rosalee Longoria MD, Stany A. MD Barry, Joseph W. MD ~ DATE OF SERVICE: 11/01/2020 INFECTIOUS DISEASE CONSULTATION ATTENDING PHYSICIAN: Dr. Mara Altamirano REASON FOR EVALUATION: Pneumonitis, complicated by respiratory failure, the patient with recent diagnosis of COVID-19 infection, complicating factors including end-stage renal disease, on dialysis. HISTORY OF PRESENT ILLNESS: Chart reviewed, patient examined. This is a 80-year-old, known to myself, who does not have dialysis, does have severe underlying chronic health issues including end-stage renal disease, on dialysis, who has been hospitalized now 3 times in the last 30-45 days, initially with capnocytophaga septicemia secondary to dog bite and subsequently admitted with COVID-19 infection. She did fairly well. She was discharged; however, readmitted with increasing difficulty breathing. She does note had a cough that was somewhat productive. She was found to be hypoxemic with saturations in the 80s. She was supplemented with oxygen initially at 100%, now down to 4-5 liters. She is undergoing dialysis currently and has significant improvement in her overall situation. She is generally lucid. She does admit to some left-sided abdominal-related complaints. Denies any fevers or chills. Appetite has been poor with concomitant poor p.o. intake, empirically placed on combination therapy with ceftriaxone, azithromycin and vancomycin. ALLERGIES: LISTED TO IODINE. CURRENT MEDICATIONS: Include cefepime, vancomycin, Benzidine, ascorbic acid, zinc, allopurinol, sertraline, apixaban, famotidine, dexamethasone, metoprolol, levothyroxine, insulin sliding scale, vancomycin dose with adjustment for renal failure. PAST MEDICAL HISTORY: Includes end-stage renal disease, on dialysis; has cardiomyopathy with history of congestive heart failure; atrial fibrillation; reflux; hypothyroidism with recent elevated TSH; gout; hypertension; depression. SOCIAL AND FAMILY HISTORY: Available in chart. REVIEW OF SYSTEMS: Otherwise, unremarkable. [address] [address] CONSULTATION Name: ZAKIA HERNÁNDEZ Room #: 170-11 ADM IN M.R.#: [id number] Admission: 10/31/20 Attend Phys: Mara Altamirano Discharge: Date of : 42 Report #: [id number] PHYSICAL EXAMINATION: GENERAL: She appears chronically ill, undernourished. She is relatively lucid at this point. She appears chronically ill. VITAL SIGNS: Temperature 98.1, pulse 111, respirations 13, blood pressure 103/45. SKIN: Warm, dry. HEENT: Normocephalic. Extraocular muscles are intact. NECK: Supple, has nasal cannula in place. LUNGS: Few scattered coarse breath sounds. HEART: Tachycardic, irregular. I do not appreciate a murmur. ABDOMEN: Somewhat tender on the left side. There are no overt peritoneal signs. GENITOURINARY AND RECTAL: Deferred. LABORATORY DATA: On readmission, chest x-ray showed multifocal alveolar infiltrates with progression. ABGs: pH 7.438, pCO2 41, pO2 90.1 on 5 liters. CBC: White count 12.9, H and H 11.3 and 34.7, platelets of 159. Initial lactic acid 4.3, repeat was 2.0. Blood cultures collected are sterile thus far. Electrolytes: Sodium 141, potassium 3.2, chloride 100, bicarbonate is 31, anion gap of 10, BUN and creatinine 20 and 2.5, glucose of 68. AST of 49, ALT of 25, albumin of 2.1, total protein of 6.5. CBC: White count 12.5, H and H 11.7 and 36.9, platelets of 143 from this morning. ASSESSMENT: Pneumonitis in a patient that certainly at risk secondary bacterial cause. His recent positive COVID testing has been treated as well, seems to have improved symptomatic with dialysis and removed roughly 2 liters with suggested multifactorial etiology. We will continue empiric therapy with vancomycin and cefepime to assume a possibility of resistant organisms including gram negatives. We will check sputum if she is able to produce it and see how she does clinically, certainly as she is very tenuous at baseline. Continue to monitor expectantly. <ELECTRONICALLY SIGNED> By: Mane Franks MD 11/02/20 1112 1522 190 Mane Franks MD /nt
--- NOTE | 2020-11-02 19:00 | NUR ---
[address] PT OF DR KELLOGG ADMITTED TO ICU VIA CART FROM ER. AWAKE AND ALERT OPTIFLOW AT 50 % O2 SAT 96 % ANURIC LEFT ARM FISTUILA. COVID POSITIVE IN ENHANSED PRECAUTIONS. WILL CONT TO MONITOR
--- NOTE | 2020-11-02 22:50 | NUR ---
PT'S DAUGHTER IN LAW CALLED AT 2245 WANTING AN UPDATE OF PT STATUS. PT ALERT AND ORIENTED AND WISHED FOR HER DAUGHTER IN LAW, KEREN GARCIA, TO BE GIVEN INFORMATION. INFORMATION WAS RELAYED TO THIS RN BY PT'S RN. RN UPDATED DAUGHTER IN LAW AT 2250.
[2020-11-03] VITALS (30 sets, daily range): BP systolic 87–133; BP diastolic 44–88
--- NOTE | 2020-11-03 06:00 | NUR ---
VSS REMAINS ON OPTIFLOW 50 % MUCH MOPRE ALERT THIS AM. SINUS TACH WILL CONT TO MONITOR.
[2020-11-03 07:30] LABS: HEMATOCRIT 34.6 % (37.0-47.0); HEMOGLOBIN 10.7 gm/dL (12.0-15.0); MCH 29.9 pg (26.0-34.0); MCV 96.5 fL (80.0-100.0); RBC 3.58 mil/uL (4.20-5.00); RDW 20.5 % (10.5-14.5); WBC 12.6 thou/uL (4.0-11.0)
[2020-11-03 07:40] LABS: ALBUMIN 1.8 g/dL (3.4-5.0); CALCIUM 8.8 mg/dL (8.5-10.1); CREATININE 2.2 mg/dL (0.6-1.0); POTASSIUM 3.9 mmol/L (3.5-5.1); TOTAL BILIRUBIN 0.9 mg/dL (0.2-1.0); TOTAL PROTEIN 6.4 g/dL (6.4-8.2)
--- NOTE | 2020-11-03 14:30 | NUR ---
Corina- yolanda-in-law called to inquire regarding pt status. the pt told me that her son was in the hospital at [facility] for covid and she wanted Corina to have her health information (an authorized contact). RN returned call, updated on amount of oxygen on optiflow, small appetite. small piece of egg caught in throat, however it finally resolved with use of applesauce and thickened liquids. GI consult for difficulty swallowing. taking deep breaths/coughing with productive sputum. dialysis scheduled tomorrow on Friday per Dr. Duque
[2020-11-04] VITALS (91 sets, daily range): BP systolic 84–126; BP diastolic 42–82
--- NOTE | 2020-11-04 13:04 | NUR ---
ASSUMED CARE AT 0700. DAUGHTER IN LAW, KEREN, CALLED AT 1216 AND SHE WAS UPDATED AND EDUCATED ON THE PATIENT'S CONDITION AND PLAN OF CARE.
[2020-11-04 19:49] LABS: HEMOGLOBIN 11.8 gm/dL (12.0-15.0)
[2020-11-04 19:51] LABS: MCH 30.1 pg (26.0-34.0); RBC 3.92 mil/uL (4.20-5.00); RDW 20.5 % (10.5-14.5); WBC 12.3 thou/uL (4.0-11.0)
[2020-11-05] VITALS (59 sets, daily range): BP systolic 85–131; BP diastolic 37–76
[2020-11-05 06:05] LABS: ABSOLUTE NEUTROPHILS 10.4 thou/uL (1.4-8.2); BASOPHILS 0.3 % (0.0-2.0); HEMATOCRIT 37.9 % (37.0-47.0); HEMOGLOBIN 11.7 gm/dL (12.0-15.0); LYMPHOCYTES 2.3 % (24.0-44.0); MCH 29.9 pg (26.0-34.0); MCV 96.3 fL (80.0-100.0); POLYS 94.4 % (36.0-66.0); RBC 3.93 mil/uL (4.20-5.00); RDW 20.7 % (10.5-14.5); WBC 11.1 thou/uL (4.0-11.0)
[2020-11-05 06:22] LABS: ALBUMIN 1.8 g/dL (3.4-5.0); CALCIUM 8.9 mg/dL (8.5-10.1); CREATININE 2.6 mg/dL (0.6-1.0); PHOSPHORUS 3.6 mg/dL (2.6-4.7); POTASSIUM 4.5 mmol/L (3.5-5.1); TOTAL BILIRUBIN 0.9 mg/dL (0.2-1.0); TOTAL PROTEIN 6.6 g/dL (6.4-8.2)
[2020-11-05 10:13] LABS: ANISOCYTOSIS 2+
[2020-11-05 10:14] LABS: PLATELET COUNT 115 thou/uL (150-400)
--- NOTE | 2020-11-05 14:00 | NUR ---
ASSUMED CARE AT 0700. PATIENT'S DAUGHTER IN LAW, KEREN, CALLED AT 1200 AND SHE WAS UPDATED AND EDUCATED ON THE PLAN OF CARE AND PATIENT'S CONDITION.
[2020-11-06] VITALS (104 sets, daily range): BP systolic 87–151; BP diastolic 47–83
--- NOTE | 2020-11-06 11:35 | NUR ---
THIS BONE DENSITY TECHNICIAN CALLED MARYA AT . I CALLED TO OFFER PRAYER AND SUPPORT. IT IS A VERY DIFFICULT TIME FOR THE FAMILY WITH THE PATIENT'S SON ALSO HOSPITALIZED FOR COVID AT A DIFFERENT HOSPITAL.
[2020-11-07 04:02] LABS: HEMATOCRIT 35.6 % (37.0-47.0); HEMOGLOBIN 11.2 gm/dL (12.0-15.0); MCH 30.4 pg (26.0-34.0); MCHC 31.5 g/dL (28.0-37.0); MCV 96.4 fL (80.0-100.0); RBC 3.7 mil/uL (4.20-5.00); RDW 21.2 % (10.5-14.5); WBC 9.5 thou/uL (4.0-11.0)
[2020-11-07 04:09] LABS: CALCIUM 8.8 mg/dL (8.5-10.1); CREATININE 2.7 mg/dL (0.6-1.0); POTASSIUM 4.3 mmol/L (3.5-5.1)
--- NOTE | 2020-11-07 10:28 | NUR ---
Recommend order for repeat ST eval for swallowing
[2020-11-07 14:29] VITALS: BP 110/67
--- NOTE | 2020-11-07 14:51 | NUR ---
ON-GOING ASSESSMENT: CM REVIEWED CHART. PT REMAINS ON 40LPM OXYGEN AND IS IN ENHANCED ISOLATION DUE TO COVID 19. PT IS UNABLE TO WORK WITH THERAPIES AT THIS TIME BUT WILL LIKELY NEED POST ACUTE CARE AT DISCHARGE. WILL AWAIT TO SEE IF RESPIRATORY STATUS PRGORESSES AND IF SHE CAN WORK WITH THERAPIES. PT WAS FROM HOME WHERE SHE STAYS WITH HER SON IN A HOUSE. PT HAS TRIPOD WALKER TO ASSISTANCE. PT CAN USE A RAMP TO ENTER THE HOME. CM REACHED OUT AND SPOKE WITH [facility] LOCATION WHERE PT NORMALLY GETS DIALYSIS MWF AT 0630 BUT THEY REPORT PT HAS BEEN GOING TO THEIR [place] LOCATION SINCE TESTING POSITIVE FOR COVID. CM ATTEMPTED TO REACH [facility] AT [phone] BUT THEY CLOSE AT NOON ON TUESDAYS. CM WILL CONTINUE TO FOLLOW TO ASSIST NEEDED.
[2020-11-07 15:02] VITALS: BP 101/59
--- NOTE | 2020-11-07 15:08 | NUR ---
ON-GOING ASSESSMENT: pt remains in enhanced isolation due to covid 19. pt normally lives at home with her son and daughter in law in a house and has a tripod walker. PTS SON IS CURRENTLY HOSPITALIZED [place] [facility] AND CM HAS BEEN TALKING WITH PATIENTS DAUGHTER IN LAW. PT WAS ABLE TO WORK WITH THERAPY BUT THEY ARE RECOMMENDING POST ACUTE CARE AT DISCHARGE. CM DISCUSSED SNF OPTIONS WITH PATIENTS DAUGHTER IN LAW AND SHE PREFERS A REFERRAL SENT TO [facility] THIS IS CLOSE TO THEIR HOME. CM FAXED REFERRAL. PT IS STILL ON 40LPM OXYGEN AND NOT STABLE AT THIS TIME FOR DISCHARGE BUT [facility]. PT WAS ALSO GETTING DIAYLSYS AT [facility] LOCATION DUE TO TESTING POSITIVE FOR COVID BUT HER HOME LOCATION FOR DIALYSIS IS [facility]. CM ATTEMPTED TO CONTACT [facility] BUT THEY CLOSED AT NOON TODAY. CM WILL CONTINUE TO FOLLOW TO ASSIST NEEDED.
[2020-11-07 16:00] VITALS: BP 109/61
[2020-11-07 17:02] VITALS: BP 102/69
[2020-11-07 18:00] VITALS: BP 102/60
[2020-11-07 19:00] VITALS: BP 97/50
--- NOTE | 2020-11-07 19:26 | NUR ---
CALLED DAUGHTER IN LAW AND UPDATED HER ON THE PATIENT'S CONDITION AND THAT DR HASTINGS HAS BEEN CONSULTED CONCERNING DISCHARGE GOALS.
--- NOTE | 2020-11-07 19:28 | NUR ---
PATIENT IS PROGRESSING IN DECREASING O2 DEMANDS BUT REFUSES TO EAT, WILL ONLY DRINK NEPRO DRINK. WILL CONTINUE TO MONITOR.
[2020-11-08] VITALS (79 sets, daily range): BP systolic 76–133; BP diastolic 40–101
--- NOTE | 2020-11-08 11:27 | EKG ---
[address] [place] [place] [address] ELECTROCARDIOGRAM REPORT Name: ZAKIA HERNÁNDEZ Room #: 240-P ADM IN M.R.#: [id number] Admission: 10/31/20 Attend Phys: Mara Altamirano Discharge: Date of : 42 Report #: [id number] [facility] Test Date: 2020-11-08 Test Time: 10:19:59 Pat Name: ZAKIA HERNÁNDEZ Department: Room: 240 P Gender: F Security System Technician: BALJIT : 1940 Requested By: Yessica Osuna Order Number: [id number] MD: Mau Yang Measurements Intervals [place] Rate: 107 P: TN: QRS: 170 QRSD: 124 T: 152 QT: 380 QTc: 507 Interpretive Statements AFIB/flutter RBBB Consider left ventricular hypertrophy Abnormal T, consider ischemia, lateral leads Prolonged QT interval Compared to ECG 10/31/2020 20:20:37 Prolonged QT interval now present Atrial fibrillation no longer present T-wave abnormality still present Electronically Signed On 11-08-2020 11:27:13 [employer] MDM DEVELOPER by Mau Yang [email or web address] <ELECTRONICALLY SIGNED> By: Mau Yang MD, FAC 11/08/20 1127 1019 1019 Mau Yang MD, [facility] /EPI
--- NOTE | 2020-11-08 14:41 | NUR ---
ASSUMED CARE AT 0700. HEMODIALYSIS TODAY. 2 L TAKEN OFF PER DIALYSIS NURSE.
[2020-11-09] VITALS (26 sets, daily range): BP systolic 89–138; BP diastolic 42–100
[2020-11-09 05:16] LABS: HEMOGLOBIN 11.2 gm/dL (12.0-15.0); MCH 30.7 pg (26.0-34.0); MCV 95.9 fL (80.0-100.0); RBC 3.65 mil/uL (4.20-5.00); RDW 19.9 % (10.5-14.5); WBC 10.5 thou/uL (4.0-11.0)
[2020-11-09 05:59] LABS: CALCIUM 8.8 mg/dL (8.5-10.1); CREATININE 2.6 mg/dL (0.6-1.0); POTASSIUM 4.1 mmol/L (3.5-5.1)
--- NOTE | 2020-11-09 06:36 | NUR ---
Hi flow nasal cannula remains unchanged. Patient sats in lower 90's throughout night. Vital signs stable, afebrile. Unable to wean oxygen at all. Patient not progressing towards goals, still needs close monitoring.
--- NOTE | 2020-11-09 14:10 | NUR ---
DAUGHTER IN LAW, KEREN GARCIA CALLED IN AND UPDATED HER ON THE PATIENT'S STATUS, SHE STATES THAT THE PATIENT'S SON IS STILL HOSPITALIZED AND NEED TO DISCUSS OPTIONS WITH HIM CONCERNING POC.
--- NOTE | 2020-11-09 14:39 | NUR ---
0700 ASSUMMED CARE OF PATIENT FROM THE NIGHT NURSE.
[2020-11-10] VITALS (13 sets, daily range): BP systolic 117–142; BP diastolic 56–77
--- NOTE | 2020-11-10 05:25 | NUR ---
ASSUMED CARE AT 1900. HR AFIB 120-130 AT START OF SHIFT, GRADUALLY CAME DOWN TO LOW 100'S. O2 SATS 92-94% AT REST, DESATS TO AROUND 85% WITH ACTIVITY. VERY SLOW WITH DRINKS/MEDS, EASILY WINDED WITH ANY INTAKE. REPORT CALLED TO SERINA OZUNA ON 3W AT 0500. PT TRANSPORTED BY BED AT 0520. CALLED PT'S JOANA VELIZ AT 0524, NOTIFIED HER THAT PT WAS MOVING TO ROOM 352. NO FURTHER CONCERNS.
--- NOTE | 2020-11-10 06:21 | NUR ---
TRANSFER FROM ICU. OPTI FLOW INTACT, CONTINUOUS PULSE OX. PT ALERT. LUNGS DIMINISHED. PICC AND FISTULA INTACT. PT ALERT TO SELF AND SITUATION. COMPLIANT WITH AM MEDS.
--- NOTE | 2020-11-10 14:17 | NUR ---
PIPE reviewed chart and spoke with nursing and attending physician. Pt transferred to from ICU. Remains in Enhanced Isolation due to COVID-19. PT is afebrile and requiring optiflow. Pt is on IV abx and IV steroids. Pt having dialysis today. Palliative care physician consulted to discuss goals of care with pt and family. PIPE spoke with Sera at [facility] who states they have reviewed pt's info and they should be able to accept pt when medically stable. However, pt is on 40L of O2. Therapy ordered to evaluate pt. Will fax clinical/therapy updates on Friday for review. PIPE spoke with pt's dtr-in-law, Corina, via phone to provide update. Pt's son remains hospitalized for COVID at [facility]. Contact info for PIPE and W nurses station provided to Corina. No weekend discharge planned. PIPE is following to assist as needed with discharge planning.
--- NOTE | 2020-11-10 16:55 | NUR ---
RN ASSUMED PT'S CARE AT 0700AM,PT KNOWS HER NAME AND DAY, PT CAN FOLLOW COMMANDS, BUT PT IS CONFUSED AT TIME, PT IS ON OPT-FLOW O2 45-45 L/SVEN/NC, O2 60% TO KEEP O2SAT 92-96%, PT HAS DE-SAT WITH ACTIVITIES, PT HAS DIALYSIS TODAY, REMOVE 1000ML FLUID, PT IS TOLERATIVE DIALYSIS, PT IS VERY WAEK AND SHE DEEDS HELP ADL.
--- NOTE | 2020-11-10 23:14 | NUR ---
PT CONFUSED. VSS. AFEBRILE. SAT 91-93% ON CURRENT OPTIFLO SETTINGS. INC OF STOOL X1 SO FAR.ZGARD APPLIED TO BUTTOCKS. BED DOWN. CALL LIGHT IN REACH. BED ALARM IS ON.
[2020-11-11 04:36] VITALS: BP 129/66
--- NOTE | 2020-11-11 06:42 | NUR ---
PT RESTING QUIETLY. SAT 91-92 %. RT IN RM GIVING TX.
[2020-11-11 07:59] VITALS: BP 126/71
[2020-11-11 11:18] VITALS: BP 119/71
[2020-11-11 15:03] VITALS: BP 133/75
--- NOTE | 2020-11-11 18:21 | NUR ---
RN ASSUMED PT'S CARE AT 0700AM, PT KNEWS HER NAME AND DAY, PT CAN FOLLOW COMMMANDS, PT IS CONFUSED AT TIME, PT'S O2 HAS INCREASE TO 74%, O2 50L/MIN/NC AT OPT-FLOW TO KEEP O2SAT 02-96%, PT STILL IS DE-SAT WITH ACTIVITIES, RN HAS CALLED DR TO REPORT ABNORMAL CHEST X-RAY, PT STARTS IV ABX, PT STILL HAS COUGHING , RN WILL REPORT TO NEXT SHIFT TO KEEP EYE ON PT.
[2020-11-11 19:28] VITALS: BP 126/76
--- NOTE | 2020-11-11 21:49 | NUR ---
PT VERY CONFUSED. SHE WILL NOT COMPLY WITH TAKING MEDS IN PUDDING. SHE TOOK SPOONFUL AND NOTHING MORE. REFUSED REST OF MEDS AND THICKENED FLUIDS. SHE PULLED OFF NRB MASK X1 SO FAR. SATS 98% ON NRB PRESENTLY. HELD INSULIN FOR BS 168 DUE TO NONCOOPERATIVE WITH PO INTAKE. NOTIFIED ENGINEERING SECRETARY FARM EQUIPMENT ENGINE MECHANIC PT REFUSING MEDS AND WILL KEEP NPO FOR NOW. SUCTION AT BS. ST TO EVALUATE SWALLOWING TOMORROW AND MAY POSSIBLY NEED NG TUBE, DAY SHIFT NS STATED DR WAS GOING TO TALK WITH FAMILY REGARDING CHANGING TO COMFORT CARE. PT STATES SHE WANTS TO AND DOES NOT WANT MASKS ON. NICOLAS CARE DONE ZGARD APPLIED TO REDDENED BOTTOM. REPOSITIONED UP IN BED ON RIGHT SLIGHTLY. WILL CONTINUE TO MONITOR PT FOR CHANGES.
[2020-11-11 23:47] VITALS: BP 137/74
[2020-11-12 03:00] VITALS: BP 143/73
[2020-11-12 04:48] LABS: ABSOLUTE NEUTROPHILS 12.8 thou/uL (1.4-8.2); BASOPHILS 0.7 % (0.0-2.0); EOSINOPHILS 0.2 % (0.0-3.0); HEMATOCRIT 34.2 % (37.0-47.0); HEMOGLOBIN 10.6 gm/dL (12.0-15.0); LYMPHOCYTES 1.4 % (24.0-44.0); MCH 29.8 pg (26.0-34.0); MCHC 30.8 g/dL (28.0-37.0); MCV 96.8 fL (80.0-100.0); MONOCYTES 4.2 % (1.0-8.0); PLATELET COUNT 113 thou/uL (150-400); POLYS 93.5 % (36.0-66.0); RBC 3.54 mil/uL (4.20-5.00); RDW 21.2 % (10.5-14.5); WBC 13.7 thou/uL (4.0-11.0)
[2020-11-12 05:02] LABS: ALBUMIN 1.9 g/dL (3.4-5.0); CREATININE 4.3 mg/dL (0.6-1.0); POTASSIUM 4.7 mmol/L (3.5-5.1); TOTAL BILIRUBIN 1.2 mg/dL (0.2-1.0); TOTAL PROTEIN 7.1 g/dL (6.4-8.2)
--- NOTE | 2020-11-12 07:12 | NUR ---
PT PROGRESSING POORLY TOWARDS D/C GOALS. PT REFUSING TO EAT OR DRINK OR TAKE PILLS. DENIED BEING HUNGRY OR THIRSTY, SHE SAID SHES TIRED. PT MORE LETHARGIC THIS AM BUT ANSWERS NURSE. SAT 98% ON NRB MASK. ORDER PLACED BY ASSISTANT PROFESSOR OF FORESTRY FOR ST TO EVALUATE AND MAY NEED NG PLACEMENT. INFORMED DAY SHIFT NS DR WILL NEED TO ADDRESS MEDICATIONS TO BE CHANGED TO IV OR PLACE TUBE IF DOES NOT GET CHANGED TO COMFORT CARE STATUS. INFORMED DAY SHIFT NS TO F/U WITH DR REGARDING WBC RESULTS.
[2020-11-12 07:16] VITALS: BP 135/87
[2020-11-12 11:19] VITALS: BP 135/77
--- NOTE | 2020-11-12 15:51 | NUR ---
RN ASSUMED PT'S CARE AT 0700AM, PT IS A&OX2 , PT IS CONFUSED AT TIME, BUT PT IS VERY WEAK, PT NEEDS MORE O2 TO KEEP O2SAT > 90%, DRS HAVE TALKED TO PT'S SON ABOUT PT'S HEALTH CONDITION ( NOT GET IMPROVED ), AND PT REFUSED TO EAT AND TAKE MEDICATION , PT 'S CODE STATUS HAS CHANGED TO DNR , AND PT STARTS COMFORT CARE TODAY, PT HAS FACE TIME WITH HER SON TODAY, PT 'S ORAL CARE HAS DONE , PT DENIES PAIN AT THIS TIME,PT HAS FACE MASK O2 6L/MIN TO KEEP PT'S CONFORTABLE.
[2020-11-12 19:45] VITALS: BP 128/58
--- NOTE | 2020-11-12 22:39 | NUR ---
PT NOT PROGRESSING TOWARDS D/C GOALS. SHE IS NOW ON COMFORT CARE. SHE SHOOK HER HEAD NO WHEN I ASKED HER IF SHE WAS IN PAIN SHE IS LETHARGIC. VSS ST ON MONITOR. SATS 89-90% ON FM 6L. WILL CONTINUE TO PROVIDE COMFORT MEASURES AND ASSESS FOR LABORED BREATHING.
--- NOTE | 2020-11-13 04:30 | NUR ---
PT RESTING QUIETLY. REPOSITIONED SAT 93%.
[2020-11-13 08:16] VITALS: BP 144/57
--- NOTE | 2020-11-13 08:57 | NUR ---
Nutrition: pt noted to be comfort care so reassessment deferred.
--- NOTE | 2020-11-13 11:52 | NUR ---
Received on bed, drowsy but rousable, opens eyes at times. On comfort care-no code. Vital signs stable. On rebreather mask at 6lpm. On telemetry; no signs of chest pain, crushing sensation and heaviness. On pureed diet/pleasure feeds; assisted and encouraged in eating and drinking- pt drowsy to eat- no nausea, no vomiting and no abdominal pain noted. Assisted in ADLs. Dialysis (M-[id number]); dialysis fistula at L arm; limb precaution in place. Mouth care done to patient. With redness at buttocks- barrier cream applied; turned on her sides regularly. Incontinent of bowel and bladder, checked frequently and changed as needed. With 2 lumen IJ at R- dressing C/D/I. To continue monitoring patient. Pt's son Aguila updated re: pt's status this AM. Morphine PRN given for air hunger.
[2020-11-13 15:30] VITALS: BP 140/60
--- NOTE | 2020-11-13 15:57 | NUR ---
SW reviewed chart and spoke with nursing and attending physician. Pt remains in Enhanced Isolation due to COVID-19. Palliative care physician spoke with pt's family over the weekend. Pt's family decided to initiate comfort care measures. Pt remains on comfort care. Pt's family able to see pt via Face Time. PIPE is following and is available to assist as needed.
[2020-11-13 19:44] VITALS: BP 121/60
--- NOTE | 2020-11-14 06:37 | NUR ---
PATIENT ON COMFORT CARE DURING SHIFT. PATIENT RESTING IN BED DURING SHIFT. ON 2 LITERS OXYGEN. SATS IN THE 80'S. MORPHINE GIVEN FOR AIR HUNGER, LORAZEPAM GIVEN FOR AGGITATION. SINUS TACH. FALL PRECAUTIONS IN PLACE DURING SHIFT.
[2020-11-14 07:46] VITALS: BP 144/70
--- NOTE | 2020-11-14 13:44 | NUR ---
PIPE reviewed chart and spoke with nursing and attending physician. Pt remains on comfort care. PIPE contacted instructional design specialist regarding isolation. ID discontinued Enhanced Isolation precautions. PIPE spoke with both pt's son, Aguila and dtr-in-law, Corina, via phone to provide update and discuss pt transferring off of 3W and possibility of hospice house evaluation. Both Aguila and Corina are agreeable with referral to [facility]. Aguila remains hospitalized at this time. PIPE explained referral/evaluation process for admission to the hospice house. PIPE faxed clinical info and COVID test results to [facility]. Spoke with Kinsey in intake to confirm info was received. head wood grinder to do onsite eval or peer to peer with pt's nurse. Awaiting input from [facility]. PIPE is following to assist as needed with discharge planning.
[2020-11-14] MEDS ORDERED: MORPHINE SU4 MG/1 M1 IV PUSH (16:51)
[2020-11-14] MEDS ORDERED: LORAZEPAM 22 MG/1 ML IV PUSH (16:51)
[2020-11-14] MEDS ORDERED: ONDANSETRON4 MG/2 M1 IV PUSH (16:52)
--- NOTE | 2020-11-14 16:55 | NUR ---
RN ASSUMED PT'S CARE AT 0700AM, PT REMAINS ON COMFORT CARE , PT OPENS HER EYES BY VOICE OR PAIN, PT'S ORAL CARE AND SKIN CARE HAVE DONE, PT HAS MEDICATIONS FOR PAIN, PT HAS ORDER HOSPICE HOUSE TO EVALUATE , PT IS OFF COVID ISOLATION , HAS ORDER TO DC TO [facility], RN HAS NOTIFIED PT'S SON.
--- NOTE | 2020-11-14 19:34 | NUR ---
TRANSPORTATION SHIPPING AND RECEIVING ASSOCIATE PT TO HOSPICE HOUSE ABOUT 1800PM, PT HAD PAIN MEDICATION AT 1730PM, PT WAS COMFORTBLE .
== END 2020-11-14 18:40 | disposition hospice, home (50) | DRG 871 ==
LOC: ER 18:15 → EROBS 21:54 → ICU 21:54 → EROBS 11-01 16:10 → ICU 11-02 18:35 → 3W 11-10 05:20
PROVIDERS: Emergency Medicine; Hospitalist; Internal Medicine; Internal Medicine Pulmonary Disease; Nurse Practitioner Family; Pediatrics; Specialist; ADMIT Hospitalist; ATTEND Hospitalist
PROC: 02HV33Z Insertion of Infusion Device into Superior Vena Cava, Percutaneous Approach (ICD-10-PCS; principal; 2020-11-01)
PROC: 5A1D70Z Performance of Urinary Filtration, Intermittent, Less than 6 Hours Per Day (ICD-10-PCS; principal; 2020-11-01)
PROC: 5A0955A Assistance with Respiratory Ventilation, Greater than 96 Consecutive Hours, High Flow/Velocity Cannula (ICD-10-PCS; 2020-11-02)
PROC: 5A1D70Z Performance of Urinary Filtration, Intermittent, Less than 6 Hours Per Day (ICD-10-PCS; 2020-11-02)
PROC: 5A1D70Z Performance of Urinary Filtration, Intermittent, Less than 6 Hours Per Day (ICD-10-PCS; 2020-11-04)
PROC: 5A1D70Z Performance of Urinary Filtration, Intermittent, Less than 6 Hours Per Day (ICD-10-PCS; 2020-11-13)
DX: A41.89 Other specified sepsis (principal); U07.1 COVID-19; N18.6 End stage renal disease; G93.41 Metabolic encephalopathy; I50.33 Acute on chronic diastolic (congestive) heart failure; J12.82 Pneumonia due to coronavirus disease 2019; J96.21 Acute and chronic respiratory failure with hypoxia; I42.9 Cardiomyopathy, unspecified; I48.20 Chronic atrial fibrillation, unspecified; E46 Unspecified protein-calorie malnutrition; I48.92 Unspecified atrial flutter; Z68.1 Body mass index [BMI] 19.9 or less, adult; I13.2 Hypertensive heart and chronic kidney disease with heart failure and with stage 5 chronic kidney disease, or end stage renal disease; K21.9 Gastro-esophageal reflux disease without esophagitis; E03.8 Other specified hypothyroidism; M10.9 Gout, unspecified; F32.9 Major depressive disorder, single episode, unspecified; E11.22 Type 2 diabetes mellitus with diabetic chronic kidney disease; E03.9 Hypothyroidism, unspecified; I48.0 Paroxysmal atrial fibrillation; I25.10 Atherosclerotic heart disease of native coronary artery without angina pectoris; I95.89 Other hypotension; R13.10 Dysphagia, unspecified; D64.9 Anemia, unspecified; D69.6 Thrombocytopenia, unspecified; I27.20 Pulmonary hypertension, unspecified; Z51.5 Encounter for palliative care; Z90.49 Acquired absence of other specified parts of digestive tract; Z95.1 Presence of aortocoronary bypass graft; Z91.041 Radiographic dye allergy status; Z79.899 Other long term (current) drug therapy
CPT/HCPCS: 10078; 10879; 32100